=== PATIENT | female | born 1930 | race African-American/Black ===

== ENCOUNTER 2020-01-13 17:58 | Inpatient (IN) ==
[2020-01-13 18:35] LABS: Apearance,Urine CLEAR (Clear); Bacteria,Urine Occasional /HPF (Few); Basophils % 0.2 % (0.0-0.8); Bilirubin,Urine Negative (Negative); Blood, Urine Small mg/dL (Negative); Glucose,Urine (UA) Negative (Negative); Hematocrit 43.6 VOL% (35.7-47.0); Hemoglobin 13.6 GM/DL (12.0-16.0); Hyaline Casts,Urine 42 /LPF (0-3); Immature Granulocytes % 0.4 %; Immature Granulocytes Absolute 0.03 #; Ketones,Urine 5 mg/dL (Negative); Lymphocytes # 0.8 10*3/uL (1.4-4.0); Lymphocytes % 9.3 % (21.3-54.2); Mean Corpuscular HGB Conc 31.2 GM/DL (32-36); Mean Corpuscular Volume 84.7 FL (87-102); Mean Platelet Volume 12.7 FL (9.6-12.0); Monocytes % 8.2 % (1.7-12.7); Mucus,Urine Occasional /LPF (Occasional); Neutrophils % 81.9 % (38.7-73.9); Nitrite,Urine Negative (Negative); Platelet Count 161 T/CUMM (130-400); Protein,Urine 100 MG/DL; RBC,Urine 2 /HPF (0-4); Red Blood Count 5.15 MC/CUMM (3.8-5.5); Red Cell Distribution Width 14.3 % (9.3-17.3); Urine Color Amber (Yellow); Urine Specific Gravity 1.026 (1.001-1.035); Urine Urobilinogen < 2.0 EU/DL (0.2-1.0); WBC,Urine 1 /HPF (0-6); White Blood Count 8.3 T/CUMM (4-12)
[2020-01-13] MEDS ORDERED: SODIUM CHLORIDE 0.9% 1,000 ML IV STA (18:38)
[2020-01-13 18:46] LABS: Calcium 8.8 MG/DL (8.5-10.1); Osmolality,Calculated 314.9 MOS/KG (273-304)
[2020-01-13 18:54] LABS: INR 1.2; PT Patient Result 12.4 SECS (9.8-11.9)
[2020-01-13 18:58] LABS: Alanine Aminotransferase 49 U/L (13-56); Albumin 3.1 G/DL (3.4-5.0); Alkaline Phosphatase 83 U/L (45-117); Aspartate Amino Transferase 56 U/L (0-37); Blood Urea Nitrogen 44 MG/DL (7-18); Estimated Glom Filtration Rate 48 ML/MIN; Glucose 175 MG/DL (74-106); Osmolality,Calculated 313.9 MOS/KG (273-304); Total Protein 7.3 G/DL (6.4-8.3)
[2020-01-13 19:25] LABS: Barbiturates Screen,Urine Negative (Negative); Benzodiazepines Screen,Urine Negative (Negative); Cannabinoid Screen,Urine Negative (Negative); Opiate Screen,Urine Negative (Negative); Phencyclidine Screen,Urine Negative (Negative)
[2020-01-13] MEDS ORDERED: ONDANSETRON 4 MG/2 ML VIAL IV PRN (21:31)
[2020-01-13] MEDS ORDERED: hydrALAZINE 20 MG/1 ML VIAL IV STA (21:46)
[2020-01-14] MEDS: DEXTROSE 5% 1,000 ML IV SCH ×2 (00:25→11:01)
[2020-01-14 01:59] LABS: Bilirubin,Total 0.9 MG/DL (0.2-1.0); Calcium 8.7 MG/DL (8.5-10.1); Total Protein 6.8 G/DL (6.4-8.3)
[2020-01-14] MEDS: PANTOPRAZOLE 40 MG VIAL IV SCH (08:39)
[2020-01-14] MEDS ORDERED: traZODone 50 MG TABLET PO PRN (13:03)
[2020-01-14] MEDS: POTASSIUM CHLORIDE INJ 20 MEQ in DEXTROSE 5% 1,000 ML IV SCH (15:40)
[2020-01-14] MEDS: GABAPENTIN 100 MG CAPSULE PO SCH ×2 (15:42→21:06)
[2020-01-14] MEDS: POTASSIUM CHLORIDE RIDER 10 MEQ in PREMIX 1 EACH IV SCH ×4 (15:43→19:41)
[2020-01-14] MEDS: INSULIN LISPRO 100 UNIT/ML SUBCUT SCH ×2 (17:41→21:07)
[2020-01-14] MEDS: OLANZapine 5 MG TABLET PO SCH (21:04)
[2020-01-14] MEDS: ROSUVASTATIN 10 MG TABLET PO SCH (21:04)
[2020-01-14] MEDS: OXYBUTYNIN 5 MG TABLET PO SCH (21:06)
[2020-01-15 05:39] LABS: Basophils % 0.1 % (0.0-0.8); Eosinophils # 0.1 10*3/uL (0.0-0.87); Eosinophils % 0.7 % (0.00-10.9); Hematocrit 35.2 VOL% (35.7-47.0); Hemoglobin 11.3 GM/DL (12.0-16.0); Immature Granulocytes % 0.7 %; Immature Granulocytes Absolute 0.05 #; Lymphocytes # 1.5 10*3/uL (1.4-4.0); Lymphocytes % 19.9 % (21.3-54.2); Mean Corpuscular HGB Conc 32.1 GM/DL (32-36); Mean Platelet Volume 12.6 FL (9.6-12.0); Monocytes % 7.6 % (1.7-12.7); Platelet Count 139 T/CUMM (130-400); Red Blood Count 4.14 MC/CUMM (3.8-5.5); White Blood Count 7.5 T/CUMM (4-12)
[2020-01-15 06:15] LABS: Albumin 2.4 G/DL (3.4-5.0); Bilirubin,Total 0.8 MG/DL (0.2-1.0); Calcium 8.1 MG/DL (8.5-10.1); Ferritin 111.3 ng/ml (8-252); Risk Ratio 5.31; Thyroid Stimulating Hormone 1.75 uIU/ml (0.358-3.74); Total Protein 5.5 G/DL (6.4-8.3); VLDL CHOLESTEROL 21.2 MG/DL
[2020-01-15] MEDS: PANTOPRAZOLE 40 MG VIAL IV SCH (08:10)
[2020-01-15] MEDS: POTASSIUM CHLORIDE INJ 20 MEQ in DEXTROSE 5% 1,000 ML IV SCH ×2 (08:10→17:09)
[2020-01-15] MEDS: OXYBUTYNIN 5 MG TABLET PO SCH ×2 (08:11→20:52)
[2020-01-15] MEDS: FERROUS SULFATE 325 MG TABLET PO SCH (08:11)
[2020-01-15] MEDS: metFORMIN 500 MG TABLET PO SCH (08:11)
[2020-01-15] MEDS: DOCUSATE SODIUM 100 MG CAPSULE PO SCH (08:11)
[2020-01-15] MEDS: INSULIN LISPRO 100 UNIT/ML SUBCUT SCH ×4 (09:14→20:53)
[2020-01-15] MEDS: GABAPENTIN 100 MG CAPSULE PO SCH ×2 (17:09→20:51)
[2020-01-15] MEDS: ROSUVASTATIN 10 MG TABLET PO SCH (20:52)
[2020-01-15] MEDS: OLANZapine 5 MG TABLET PO SCH (20:52)
[2020-01-16] MEDS: POTASSIUM CHLORIDE INJ 20 MEQ in DEXTROSE 5% 1,000 ML IV SCH ×2 (03:47→22:39)
[2020-01-16 04:56] LABS: Basophils % 0.1 % (0.0-0.8); Eosinophils # 0.1 10*3/uL (0.0-0.87); Eosinophils % 0.6 % (0.00-10.9); Hematocrit 36.5 VOL% (35.7-47.0); Hemoglobin 11.6 GM/DL (12.0-16.0); Immature Granulocytes % 0.5 %; Immature Granulocytes Absolute 0.05 #; Lymphocytes # 1.4 10*3/uL (1.4-4.0); Lymphocytes % 14.6 % (21.3-54.2); Mean Corpuscular HGB Conc 31.8 GM/DL (32-36); Mean Corpuscular Volume 83.5 FL (87-102); Monocytes % 7.4 % (1.7-12.7); Neutrophils % 76.8 % (38.7-73.9); Platelet Count 121 T/CUMM (130-400); Red Blood Count 4.37 MC/CUMM (3.8-5.5); Red Cell Distribution Width 13.7 % (9.3-17.3); White Blood Count 9.6 T/CUMM (4-12)
[2020-01-16 05:13] LABS: Albumin 2.4 G/DL (3.4-5.0); Bilirubin,Total 1.7 MG/DL (0.2-1.0); Calcium 8.6 MG/DL (8.5-10.1); Osmolality,Calculated 278.8 MOS/KG (273-304); Total Protein 5.9 G/DL (6.4-8.3)
[2020-01-16] MEDS: PANTOPRAZOLE 40 MG VIAL IV SCH (09:14)
[2020-01-16] MEDS: FERROUS SULFATE 325 MG TABLET PO SCH (09:15)
[2020-01-16] MEDS: metFORMIN 500 MG TABLET PO SCH (09:15)
[2020-01-16] MEDS: OXYBUTYNIN 5 MG TABLET PO SCH ×2 (09:15→21:35)
[2020-01-16] MEDS: DOCUSATE SODIUM 100 MG CAPSULE PO SCH (09:15)
[2020-01-16] MEDS: INSULIN LISPRO 100 UNIT/ML SUBCUT SCH ×4 (09:15→21:36)
[2020-01-16] MEDS ORDERED: VANCOMYCIN INJ 1,250 MG in SODIUM CHLORIDE 0.9% 250 ML IV ONE (11:00)
[2020-01-16] MEDS: DEXTROSE 5% KCL 20 MEQ 20 MEQ/1,000 ML BAG IV SCH (15:57)
[2020-01-16] MEDS: GABAPENTIN 100 MG CAPSULE PO SCH ×2 (15:58→21:35)
[2020-01-16] MEDS: OLANZapine 5 MG TABLET PO SCH (21:35)
[2020-01-16] MEDS: ROSUVASTATIN 10 MG TABLET PO SCH (21:35)
[2020-01-16] MEDS: POLYMYXIN/TRIMETHOPRIM OPH SOL 10 ML BOTTLE BOTH EYES SCH (21:36)
[2020-01-17] MEDS: VANCOMYCIN INJ 1,000 MG in SODIUM CHLORIDE 0.9% 250 ML IV SCH ×2 (00:45→10:32)
[2020-01-17] MEDS: DEXTROSE 5% KCL 20 MEQ 20 MEQ/1,000 ML BAG IV SCH ×2 (02:53→19:10)
[2020-01-17 05:36] LABS: Basophils % 0.2 % (0.0-0.8); Eosinophils # 0.1 10*3/uL (0.0-0.87); Eosinophils % 0.6 % (0.00-10.9); Hematocrit 35.7 VOL% (35.7-47.0); Hemoglobin 11.2 GM/DL (12.0-16.0); Immature Granulocytes % 0.7 %; Immature Granulocytes Absolute 0.06 #; Lymphocytes # 1.1 10*3/uL (1.4-4.0); Lymphocytes % 12.4 % (21.3-54.2); Mean Corpuscular HGB Conc 31.4 GM/DL (32-36); Mean Corpuscular Volume 82.8 FL (87-102); Mean Platelet Volume 11.9 FL (9.6-12.0); Monocytes % 7.5 % (1.7-12.7); Neutrophils % 78.6 % (38.7-73.9); Platelet Count 142 T/CUMM (130-400); Red Blood Count 4.31 MC/CUMM (3.8-5.5); Red Cell Distribution Width 13.7 % (9.3-17.3); White Blood Count 8.4 T/CUMM (4-12)
[2020-01-17 06:07] LABS: Calcium 8.4 MG/DL (8.5-10.1); Osmolality,Calculated 274.1 MOS/KG (273-304)
[2020-01-17 07:09] LABS: Troponin I 0.027 NG/ML (0.00-0.045)
[2020-01-17] MEDS: PANTOPRAZOLE 40 MG VIAL IV SCH (10:13)
[2020-01-17] MEDS: INSULIN LISPRO 100 UNIT/ML SUBCUT SCH ×4 (10:13→21:50)
[2020-01-17] MEDS: FERROUS SULFATE 325 MG TABLET PO SCH (10:15)
[2020-01-17] MEDS: ASPIRIN EC 81 MG TABLET PO SCH (10:15)
[2020-01-17] MEDS: DOCUSATE SODIUM 100 MG CAPSULE PO SCH ×2 (10:15→10:33)
[2020-01-17] MEDS: OXYBUTYNIN 5 MG TABLET PO SCH ×2 (10:15→21:43)
[2020-01-17] MEDS: metFORMIN 500 MG TABLET PO SCH (10:15)
[2020-01-17] MEDS: POLYMYXIN/TRIMETHOPRIM OPH SOL 10 ML BOTTLE BOTH EYES SCH ×2 (10:32→21:50)
[2020-01-17] MEDS: GABAPENTIN 100 MG CAPSULE PO SCH ×2 (19:12→21:43)
[2020-01-17] MEDS ORDERED: TUBERCULIN SKIN TEST 0.1 ML SYRINGE INTRADERM ONE (19:17)
[2020-01-17] MEDS: OLANZapine 5 MG TABLET PO SCH (21:43)
[2020-01-17] MEDS: ROSUVASTATIN 10 MG TABLET PO SCH (21:43)
[2020-01-17] MEDS ORDERED: MAGNESIUM SULF RIDER 2 GM in PREMIX 1 EACH IV ONE (22:55)
[2020-01-18] MEDS: VANCOMYCIN INJ 1,000 MG in SODIUM CHLORIDE 0.9% 250 ML IV SCH ×2 (01:06→12:09)
[2020-01-18 05:12] LABS: Basophils % 0.1 % (0.0-0.8); Eosinophils # 0.1 10*3/uL (0.0-0.87); Eosinophils % 0.6 % (0.00-10.9); Hematocrit 33.7 VOL% (35.7-47.0); Hemoglobin 10.9 GM/DL (12.0-16.0); Immature Granulocytes % 0.8 %; Immature Granulocytes Absolute 0.06 #; Lymphocytes # 0.9 10*3/uL (1.4-4.0); Lymphocytes % 11.7 % (21.3-54.2); Mean Corpuscular HGB Conc 32.3 GM/DL (32-36); Mean Corpuscular Volume 83.2 FL (87-102); Monocytes % 9.3 % (1.7-12.7); Neutrophils % 77.5 % (38.7-73.9); Platelet Count 128 T/CUMM (130-400); Red Blood Count 4.05 MC/CUMM (3.8-5.5); Red Cell Distribution Width 13.6 % (9.3-17.3); White Blood Count 7.8 T/CUMM (4-12)
[2020-01-18 05:26] LABS: Calcium 8.1 MG/DL (8.5-10.1); Osmolality,Calculated 271.4 MOS/KG (273-304)
[2020-01-18 05:38] LABS: Hypochromasia Slight; Platelet Estimate Normal
[2020-01-18] MEDS: DEXTROSE 5% KCL 20 MEQ 20 MEQ/1,000 ML BAG IV SCH ×3 (05:59→20:37)
[2020-01-18] MEDS: PANTOPRAZOLE 40 MG VIAL IV SCH (09:37)
[2020-01-18] MEDS: FERROUS SULFATE 325 MG TABLET PO SCH (09:38)
[2020-01-18] MEDS: INSULIN LISPRO 100 UNIT/ML SUBCUT SCH ×4 (09:38→22:14)
[2020-01-18] MEDS: DOCUSATE SODIUM 100 MG CAPSULE PO SCH (09:38)
[2020-01-18] MEDS: ASPIRIN EC 81 MG TABLET PO SCH (09:38)
[2020-01-18] MEDS: OXYBUTYNIN 5 MG TABLET PO SCH ×2 (09:38→20:47)
[2020-01-18] MEDS: metFORMIN 500 MG TABLET PO SCH (09:38)
[2020-01-18] MEDS: POLYMYXIN/TRIMETHOPRIM OPH SOL 10 ML BOTTLE BOTH EYES SCH ×2 (09:39→22:13)
[2020-01-18] MEDS: GABAPENTIN 100 MG CAPSULE PO SCH ×2 (16:45→20:23)
[2020-01-18] MEDS: ROSUVASTATIN 10 MG TABLET PO SCH (20:23)
[2020-01-18] MEDS: OLANZapine 5 MG TABLET PO SCH (20:24)
[2020-01-19] MEDS: VANCOMYCIN INJ 1,000 MG in SODIUM CHLORIDE 0.9% 250 ML IV SCH ×2 (00:20→10:01)
[2020-01-19] MEDS ORDERED: cloNIDine 0.1 MG TABLET PO ONE (00:58)
[2020-01-19] MEDS: SODIUM CHLOR 0.9% KCL 20 MEQ 20 MEQ/1,000 ML BAG IV SCH ×3 (01:30→20:45)
[2020-01-19] MEDS: INSULIN LISPRO 100 UNIT/ML SUBCUT SCH ×4 (08:32→21:29)
[2020-01-19] MEDS: OXYBUTYNIN 5 MG TABLET PO SCH ×2 (08:33→20:43)
[2020-01-19] MEDS: DOCUSATE SODIUM 100 MG CAPSULE PO SCH (08:33)
[2020-01-19] MEDS: PANTOPRAZOLE 40 MG VIAL IV SCH (08:33)
[2020-01-19] MEDS: FERROUS SULFATE 325 MG TABLET PO SCH (08:33)
[2020-01-19] MEDS: ASPIRIN EC 81 MG TABLET PO SCH (08:33)
[2020-01-19] MEDS: metFORMIN 500 MG TABLET PO SCH (08:33)
[2020-01-19] MEDS: POLYMYXIN/TRIMETHOPRIM OPH SOL 10 ML BOTTLE BOTH EYES SCH ×2 (08:38→20:46)
[2020-01-19] MEDS ORDERED: METOPROLOL SUCCINATE XL 50 MG TABLET PO SCH (09:00)
[2020-01-19] MEDS: GABAPENTIN 100 MG CAPSULE PO SCH ×2 (18:14→20:42)
[2020-01-19] MEDS: ROSUVASTATIN 10 MG TABLET PO SCH (20:44)
[2020-01-19] MEDS: OLANZapine 5 MG TABLET PO SCH (20:44)
[2020-01-20] MEDS: VANCOMYCIN INJ 1,000 MG in SODIUM CHLORIDE 0.9% 250 ML IV SCH ×2 (00:20→11:38)
[2020-01-20] MEDS ORDERED: cloNIDine 0.1 MG TABLET PO PRN (03:31)
[2020-01-20 06:31] LABS: Basophils % 0.2 % (0.0-0.8); Eosinophils # 0.1 10*3/uL (0.0-0.87); Eosinophils % 0.6 % (0.00-10.9); Hematocrit 34.6 VOL% (35.7-47.0); Hemoglobin 11.1 GM/DL (12.0-16.0); Immature Granulocytes % 0.8 %; Immature Granulocytes Absolute 0.08 #; Lymphocytes # 0.6 10*3/uL (1.4-4.0); Lymphocytes % 6.1 % (21.3-54.2); Mean Corpuscular HGB Conc 32.1 GM/DL (32-36); Mean Corpuscular Volume 82.2 FL (87-102); Mean Platelet Volume 11.5 FL (9.6-12.0); Monocytes % 9.3 % (1.7-12.7); Platelet Count 155 T/CUMM (130-400); Red Blood Count 4.21 MC/CUMM (3.8-5.5); Red Cell Distribution Width 13.8 % (9.3-17.3); White Blood Count 10.3 T/CUMM (4-12)
[2020-01-20 06:55] LABS: Calcium 8.5 MG/DL (8.5-10.1); Osmolality,Calculated 281.8 MOS/KG (273-304)
[2020-01-20] MEDS: PANTOPRAZOLE 40 MG VIAL IV SCH (08:50)
[2020-01-20] MEDS: INSULIN LISPRO 100 UNIT/ML SUBCUT SCH ×3 (08:50→15:58)
[2020-01-20] MEDS: OXYBUTYNIN 5 MG TABLET PO SCH (08:51)
[2020-01-20] MEDS: FERROUS SULFATE 325 MG TABLET PO SCH (08:51)
[2020-01-20] MEDS: DOCUSATE SODIUM 100 MG CAPSULE PO SCH (08:51)
[2020-01-20] MEDS: ASPIRIN EC 81 MG TABLET PO SCH (08:51)
[2020-01-20] MEDS: metFORMIN 500 MG TABLET PO SCH (08:52)
[2020-01-20] MEDS ORDERED: METOPROLOL SUCCINATE XL 50 MG TABLET PO SCH (09:00)
[2020-01-20] MEDS: SODIUM CHLOR 0.9% KCL 20 MEQ 20 MEQ/1,000 ML BAG IV SCH (11:14)
[2020-01-20] MEDS: POLYMYXIN/TRIMETHOPRIM OPH SOL 10 ML BOTTLE BOTH EYES SCH (11:50)
[2020-01-20 15:59] VITALS: BP 136/64
[2020-01-20] MEDS: GABAPENTIN 100 MG CAPSULE PO SCH (17:11)
== END 2020-01-20 17:20 | disposition home health service (06) | DRG 641 ==
LOC: EDBD → EDUNIT# → N.ED 17:58 → N.EDINP 21:30 → N.TELEN 23:22 → N.4E 01-17 08:38
PROVIDERS: ADMIT Internal Medicine; ATTEND Internal Medicine

== ENCOUNTER 2020-01-23 18:59 | Inpatient (IN) ==
[2020-01-23] MEDS ORDERED: SODIUM CHLORIDE 0.9% 1,000 ML IV STA (19:49)
[2020-01-23 20:05] LABS: Basophils % 0.2 % (0.0-0.8); Eosinophils % 0.1 % (0.00-10.9); Hematocrit 35.4 VOL% (35.7-47.0); Hemoglobin 11.7 GM/DL (12.0-16.0); Immature Granulocytes % 0.7 %; Immature Granulocytes Absolute 0.12 #; Lymphocytes # 0.7 10*3/uL (1.4-4.0); Lymphocytes % 4.4 % (21.3-54.2); Mean Corpuscular HGB Conc 33.1 GM/DL (32-36); Mean Corpuscular Volume 80.6 FL (87-102); Monocytes % 6.5 % (1.7-12.7); Neutrophils % 88.1 % (38.7-73.9); Platelet Count 219 T/CUMM (130-400); Red Blood Count 4.39 MC/CUMM (3.8-5.5); Red Cell Distribution Width 14.1 % (9.3-17.3); White Blood Count 16.5 T/CUMM (4-12)
[2020-01-23 20:10] LABS: Albumin 2.2 G/DL (3.4-5.0); Bilirubin,Total 0.4 MG/DL (0.2-1.0); Calcium 9.1 MG/DL (8.5-10.1); Osmolality,Calculated 301.8 MOS/KG (273-304); Total Protein 6.7 G/DL (6.4-8.3)
[2020-01-23 20:13] LABS: INR 1.1; PT Patient Result 11.4 SECS (9.8-11.9)
[2020-01-23] MEDS ORDERED: INSULIN REGULAR 100 UNIT/ML IV STA (20:21)
[2020-01-23] MEDS ORDERED: DEXTROSE 50% 25 GM/50 ML VIAL IV STA (20:21)
[2020-01-23 20:26] LABS: Anisocytosis 4+; Burr Cells 4+; Lymphocytes 2 % (20-55); Platelet Estimate Adequate; Segmented Neutrophils 93 % (50-85); Total Cells Counted 100
[2020-01-23 20:30] LABS: Hypochromasia 1+
[2020-01-23] MEDS ORDERED: DEXTROSE 50% 25 GM/50 ML SYRINGE IV ONE (20:37)
[2020-01-23 20:40] LABS: Amorphous Crystals,Urine Occasional /HPF (Few); Apearance,Urine CLOUDY (Clear); Bilirubin,Urine Negative (Negative); Blood, Urine Moderate mg/dL (Negative); Glucose,Urine (UA) Negative (Negative); Hyaline Casts,Urine 3 /LPF (0-3); Ketones,Urine Negative (Negative); Mucus,Urine Occasional /LPF (Occasional); Nitrite,Urine Negative (Negative); Protein,Urine Negative; RBC,Urine 12 /HPF (0-4); Squamous Epithelial Cell,Urine Occasional /HPF (0-10); Urine Color Yellow (Yellow); Urine Specific Gravity 1.015 (1.001-1.035); Urine Urobilinogen < 2.0 EU/DL (0.2-1.0)
[2020-01-23] MEDS ORDERED: LEVOFLOXACIN INJ 500 MG in PREMIX 1 EACH IV STA (20:42)
[2020-01-23] MEDS ORDERED: ONDANSETRON 4 MG/2 ML VIAL IV PRN (20:53)
[2020-01-23] MEDS: SODIUM CHLORIDE 0.45% 1,000 ML IV SCH (21:22)
[2020-01-24] MEDS ORDERED: SODIUM POLYSTYRENE SULFATE 15 GM/60 ML BOTTLE PO ONE
[2020-01-24 05:14] LABS: Basophils % 0.2 % (0.0-0.8); Eosinophils % 0.1 % (0.00-10.9); Hemoglobin 11.1 GM/DL (12.0-16.0); Immature Granulocytes % 0.6 %; Immature Granulocytes Absolute 0.08 #; Lymphocytes # 0.8 10*3/uL (1.4-4.0); Lymphocytes % 5.8 % (21.3-54.2); Mean Corpuscular HGB Conc 32.6 GM/DL (32-36); Mean Corpuscular Volume 81.3 FL (87-102); Mean Platelet Volume 10.9 FL (9.6-12.0); Monocytes % 7.2 % (1.7-12.7); Neutrophils % 86.1 % (38.7-73.9); Platelet Count 199 T/CUMM (130-400); Red Blood Count 4.18 MC/CUMM (3.8-5.5); Red Cell Distribution Width 14.2 % (9.3-17.3); White Blood Count 13.7 T/CUMM (4-12)
[2020-01-24 05:32] LABS: Bilirubin,Total 0.5 MG/DL (0.2-1.0); Osmolality,Calculated 301.3 MOS/KG (273-304)
[2020-01-24] MEDS: SODIUM CHLORIDE 0.45% 1,000 ML IV SCH ×2 (06:38→17:05)
[2020-01-24] MEDS ORDERED: ASPIRIN EC 81 MG TABLET PO SCH (09:00)
[2020-01-24] MEDS: DOCUSATE SODIUM 100 MG CAPSULE PO SCH (11:45)
[2020-01-24] MEDS: PANTOPRAZOLE 40 MG VIAL IV SCH (12:05)
[2020-01-24] MEDS: METOPROLOL SUCCINATE XL 50 MG TABLET PO SCH (12:06)
[2020-01-24] MEDS: NYSTATIN 500,000 UNIT/5 ML UDCUP SWISH/SWAL SCH ×2 (17:04→20:12)
[2020-01-24] MEDS: cefTRIAXone 500 MG in SYRINGE 1 EACH IV SCH (17:04)
[2020-01-24] MEDS: METOPROLOL TARTRATE 5 MG/5 ML VIAL IV SCH (17:33)
[2020-01-24] MEDS: FLUCONAZOLE INJ 100 MG in IV BAG 1 EACH IV SCH (18:32)
[2020-01-24] MEDS: ENOXAPARIN 30 MG/0.3 ML SYRINGE SUBCUT SCH (20:11)
[2020-01-25] MEDS: METOPROLOL TARTRATE 5 MG/5 ML VIAL IV SCH ×4 (00:17→17:29)
[2020-01-25] MEDS: SODIUM CHLORIDE 0.45% 1,000 ML IV SCH ×2 (03:00→13:24)
[2020-01-25 05:47] LABS: Basophils % 0.3 % (0.0-0.8); Eosinophils # 0.1 10*3/uL (0.0-0.87); Eosinophils % 0.5 % (0.00-10.9); Hematocrit 30.7 VOL% (35.7-47.0); Hemoglobin 9.8 GM/DL (12.0-16.0); Immature Granulocytes % 0.6 %; Immature Granulocytes Absolute 0.07 #; Lymphocytes # 0.6 10*3/uL (1.4-4.0); Mean Corpuscular HGB Conc 31.9 GM/DL (32-36); Mean Corpuscular Volume 82.5 FL (87-102); Mean Platelet Volume 10.7 FL (9.6-12.0); Neutrophils % 88.6 % (38.7-73.9); Platelet Count 207 T/CUMM (130-400); Red Blood Count 3.72 MC/CUMM (3.8-5.5); White Blood Count 12.3 T/CUMM (4-12)
[2020-01-25 06:02] LABS: Calcium 8.2 MG/DL (8.5-10.1); Osmolality,Calculated 289.3 MOS/KG (273-304)
[2020-01-25] MEDS: PANTOPRAZOLE 40 MG VIAL IV SCH (09:20)
[2020-01-25] MEDS: NYSTATIN 500,000 UNIT/5 ML UDCUP SWISH/SWAL SCH ×4 (12:14→21:11)
[2020-01-25] MEDS: DOCUSATE SODIUM 100 MG CAPSULE PO SCH (12:14)
[2020-01-25] MEDS ORDERED: TUBERCULIN SKIN TEST 0.1 ML SYRINGE INTRADERM ONE (14:01)
[2020-01-25] MEDS ORDERED: POTASSIUM CHLORIDE 20 MEQ PACK PO ONE (14:16)
[2020-01-25] MEDS: SODIUM CHLOR 0.45% KCL 20 MEQ 20 MEQ/1,000 ML BAG IV SCH (15:12)
[2020-01-25] MEDS: cefTRIAXone 500 MG in SYRINGE 1 EACH IV SCH (16:34)
[2020-01-25] MEDS: METOPROLOL SUCCINATE XL 50 MG TABLET PO SCH (16:35)
[2020-01-25] MEDS: FLUCONAZOLE INJ 100 MG in IV BAG 1 EACH IV SCH (17:29)
[2020-01-25] MEDS: POTASSIUM CHLORIDE 20 MEQ TABLET PO PRN (18:49)
[2020-01-25] MEDS ORDERED: LEVOFLOXACIN INJ 250 MG in PREMIX 1 EACH IV SCH (21:00)
[2020-01-25] MEDS: ENOXAPARIN 30 MG/0.3 ML SYRINGE SUBCUT SCH (21:11)
[2020-01-25] MEDS: CARBIDOPA/LEVODOPA 25-100 MG TABLET PO SCH (21:11)
[2020-01-25] MEDS: POTASSIUM CHLORIDE 20 MEQ PACK PO SCH (21:11)
[2020-01-25] MEDS ORDERED: traZODone 50 MG TABLET PO PRN (22:57)
[2020-01-25] MEDS: cloNIDine 0.1 MG TABLET PO SCH (23:55)
[2020-01-26] MEDS: METOPROLOL TARTRATE 5 MG/5 ML VIAL IV SCH ×4 (00:20→17:50)
[2020-01-26] MEDS: SODIUM CHLOR 0.45% KCL 20 MEQ 20 MEQ/1,000 ML BAG IV SCH ×2 (04:05→16:37)
[2020-01-26 04:42] LABS: Basophils % 0.2 % (0.0-0.8); Eosinophils # 0.1 10*3/uL (0.0-0.87); Eosinophils % 0.6 % (0.00-10.9); Hematocrit 31.8 VOL% (35.7-47.0); Hemoglobin 10.3 GM/DL (12.0-16.0); Immature Granulocytes % 0.4 %; Immature Granulocytes Absolute 0.04 #; Lymphocytes # 0.8 10*3/uL (1.4-4.0); Lymphocytes % 7.8 % (21.3-54.2); Mean Corpuscular HGB Conc 32.4 GM/DL (32-36); Mean Corpuscular Volume 80.9 FL (87-102); Mean Platelet Volume 10.3 FL (9.6-12.0); Monocytes % 5.9 % (1.7-12.7); Neutrophils % 85.1 % (38.7-73.9); Platelet Count 221 T/CUMM (130-400); Red Blood Count 3.93 MC/CUMM (3.8-5.5); Red Cell Distribution Width 13.8 % (9.3-17.3); White Blood Count 10.4 T/CUMM (4-12)
[2020-01-26] MEDS: POTASSIUM CHLORIDE 20 MEQ TABLET PO PRN ×3 (09:23→17:53)
[2020-01-26] MEDS: CARBIDOPA/LEVODOPA 25-100 MG TABLET PO SCH ×3 (09:24→21:12)
[2020-01-26] MEDS: NYSTATIN 500,000 UNIT/5 ML UDCUP SWISH/SWAL SCH ×4 (09:24→21:11)
[2020-01-26] MEDS: METOPROLOL SUCCINATE XL 50 MG TABLET PO SCH (09:24)
[2020-01-26] MEDS: POTASSIUM CHLORIDE 20 MEQ PACK PO SCH ×2 (09:24→21:12)
[2020-01-26] MEDS: cloNIDine 0.1 MG TABLET PO SCH ×2 (09:24→21:12)
[2020-01-26] MEDS: DOCUSATE SODIUM 100 MG CAPSULE PO SCH (09:24)
[2020-01-26] MEDS: PANTOPRAZOLE 40 MG VIAL IV SCH (09:37)
[2020-01-26] MEDS: RIVASTIGMINE 1.5 MG CAPSULE PO SCH ×2 (09:37→16:09)
[2020-01-26] MEDS: cefTRIAXone 500 MG in SYRINGE 1 EACH IV SCH (16:09)
[2020-01-26] MEDS: FLUCONAZOLE INJ 100 MG in IV BAG 1 EACH IV SCH (17:50)
[2020-01-26] MEDS: ENOXAPARIN 30 MG/0.3 ML SYRINGE SUBCUT SCH (21:11)
[2020-01-27] MEDS: METOPROLOL TARTRATE 5 MG/5 ML VIAL IV SCH ×4 (00:50→18:18)
[2020-01-27] MEDS: SODIUM CHLOR 0.45% KCL 20 MEQ 20 MEQ/1,000 ML BAG IV SCH ×2 (06:14→20:56)
[2020-01-27 06:26] LABS: Basophils % 0.2 % (0.0-0.8); Eosinophils # 0.1 10*3/uL (0.0-0.87); Eosinophils % 0.6 % (0.00-10.9); Hematocrit 33.8 VOL% (35.7-47.0); Hemoglobin 10.8 GM/DL (12.0-16.0); Immature Granulocytes % 0.5 %; Immature Granulocytes Absolute 0.05 #; Lymphocytes % 9.6 % (21.3-54.2); Mean Corpuscular Volume 83.7 FL (87-102); Mean Platelet Volume 10.1 FL (9.6-12.0); Monocytes % 5.3 % (1.7-12.7); Neutrophils % 83.8 % (38.7-73.9); Platelet Count 261 T/CUMM (130-400); Red Blood Count 4.04 MC/CUMM (3.8-5.5); Red Cell Distribution Width 13.9 % (9.3-17.3); White Blood Count 10.5 T/CUMM (4-12)
[2020-01-27 06:42] LABS: Calcium 8.1 MG/DL (8.5-10.1); Osmolality,Calculated 282.3 MOS/KG (273-304)
[2020-01-27] MEDS ORDERED: cloNIDine 0.1 MG TABLET PO SCH (09:00)
[2020-01-27] MEDS: NYSTATIN 500,000 UNIT/5 ML UDCUP SWISH/SWAL SCH ×4 (09:28→20:52)
[2020-01-27] MEDS: PANTOPRAZOLE 40 MG VIAL IV SCH (09:28)
[2020-01-27] MEDS: POTASSIUM CHLORIDE 20 MEQ PACK PO SCH ×2 (09:29→20:53)
[2020-01-27] MEDS: CARBIDOPA/LEVODOPA 25-100 MG TABLET PO SCH ×3 (09:29→20:52)
[2020-01-27] MEDS: RIVASTIGMINE 1.5 MG CAPSULE PO SCH ×2 (09:29→17:20)
[2020-01-27] MEDS: DOCUSATE SODIUM 100 MG CAPSULE PO SCH (09:30)
[2020-01-27] MEDS: METOPROLOL SUCCINATE XL 50 MG TABLET PO SCH (09:30)
[2020-01-27] MEDS: hydrALAZINE 25 MG TABLET PO SCH ×3 (09:47→20:52)
[2020-01-27] MEDS: hydrALAZINE 20 MG/1 ML VIAL IV PRN (17:19)
[2020-01-27] MEDS: cefTRIAXone 500 MG in SYRINGE 1 EACH IV SCH (17:20)
[2020-01-27] MEDS: FLUCONAZOLE INJ 100 MG in IV BAG 1 EACH IV SCH (18:19)
[2020-01-27] MEDS: ENOXAPARIN 30 MG/0.3 ML SYRINGE SUBCUT SCH (20:52)
[2020-01-28] MEDS: METOPROLOL TARTRATE 5 MG/5 ML VIAL IV SCH ×5 (00:10→23:53)
[2020-01-28 06:49] LABS: Calcium 7.7 MG/DL (8.5-10.1); Osmolality,Calculated 274.7 MOS/KG (273-304)
[2020-01-28] MEDS: PANTOPRAZOLE 40 MG VIAL IV SCH (09:05)
[2020-01-28] MEDS: hydrALAZINE 20 MG/1 ML VIAL IV PRN (09:05)
[2020-01-28] MEDS: RIVASTIGMINE 1.5 MG CAPSULE PO SCH ×2 (09:06→17:26)
[2020-01-28] MEDS: POTASSIUM CHLORIDE 20 MEQ PACK PO SCH ×2 (09:06→20:36)
[2020-01-28] MEDS: METOPROLOL SUCCINATE XL 50 MG TABLET PO SCH (09:06)
[2020-01-28] MEDS: NYSTATIN 500,000 UNIT/5 ML UDCUP SWISH/SWAL SCH ×4 (09:06→20:36)
[2020-01-28] MEDS: hydrALAZINE 25 MG TABLET PO SCH ×3 (09:07→20:36)
[2020-01-28] MEDS: CARBIDOPA/LEVODOPA 25-100 MG TABLET PO SCH ×3 (09:07→20:36)
[2020-01-28] MEDS: DOCUSATE SODIUM 100 MG CAPSULE PO SCH (09:07)
[2020-01-28] MEDS: SODIUM CHLOR 0.45% KCL 20 MEQ 20 MEQ/1,000 ML BAG IV SCH ×2 (10:41→23:57)
[2020-01-28] MEDS ORDERED: ACETAMINOPHEN 500 MG TABLET PO PRN (12:13)
[2020-01-28] MEDS: FLUCONAZOLE INJ 100 MG in IV BAG 1 EACH IV SCH (17:25)
[2020-01-28] MEDS: cefTRIAXone 500 MG in SYRINGE 1 EACH IV SCH (17:26)
[2020-01-28] MEDS: ENOXAPARIN 30 MG/0.3 ML SYRINGE SUBCUT SCH (20:35)
[2020-01-29] MEDS: METOPROLOL TARTRATE 5 MG/5 ML VIAL IV SCH ×4 (05:49→23:56)
[2020-01-29 05:58] LABS: Calcium 7.8 MG/DL (8.5-10.1); Osmolality,Calculated 278.5 MOS/KG (273-304)
[2020-01-29] MEDS: hydrALAZINE 20 MG/1 ML VIAL IV PRN (09:07)
[2020-01-29] MEDS: RIVASTIGMINE 1.5 MG CAPSULE PO SCH ×2 (09:57→16:41)
[2020-01-29] MEDS: DOCUSATE SODIUM 100 MG CAPSULE PO SCH (09:57)
[2020-01-29] MEDS: METOPROLOL SUCCINATE XL 50 MG TABLET PO SCH (09:57)
[2020-01-29] MEDS: CARBIDOPA/LEVODOPA 25-100 MG TABLET PO SCH ×3 (09:57→20:23)
[2020-01-29] MEDS: POTASSIUM CHLORIDE 20 MEQ PACK PO SCH ×2 (09:57→20:23)
[2020-01-29] MEDS: hydrALAZINE 25 MG TABLET PO SCH ×3 (09:57→20:23)
[2020-01-29] MEDS: NYSTATIN 500,000 UNIT/5 ML UDCUP SWISH/SWAL SCH ×4 (10:09→20:23)
[2020-01-29] MEDS: PANTOPRAZOLE 40 MG VIAL IV SCH (10:34)
[2020-01-29] MEDS: SODIUM CHLOR 0.45% KCL 20 MEQ 20 MEQ/1,000 ML BAG IV SCH (13:28)
[2020-01-29] MEDS: cefTRIAXone 500 MG in SYRINGE 1 EACH IV SCH (16:40)
[2020-01-29] MEDS: FLUCONAZOLE INJ 100 MG in IV BAG 1 EACH IV SCH (20:22)
[2020-01-29] MEDS: ENOXAPARIN 30 MG/0.3 ML SYRINGE SUBCUT SCH (20:23)
[2020-01-30] MEDS: METOPROLOL TARTRATE 5 MG/5 ML VIAL IV SCH ×2 (05:49→12:25)
[2020-01-30] MEDS: SODIUM CHLOR 0.45% KCL 20 MEQ 20 MEQ/1,000 ML BAG IV SCH (06:28)
[2020-01-30] MEDS: NYSTATIN 500,000 UNIT/5 ML UDCUP SWISH/SWAL SCH (09:22)
[2020-01-30] MEDS: CARBIDOPA/LEVODOPA 25-100 MG TABLET PO SCH (09:22)
[2020-01-30] MEDS: hydrALAZINE 25 MG TABLET PO SCH (09:23)
[2020-01-30] MEDS: POTASSIUM CHLORIDE 20 MEQ PACK PO SCH (09:23)
[2020-01-30] MEDS: DOCUSATE SODIUM 100 MG CAPSULE PO SCH (09:23)
[2020-01-30] MEDS: METOPROLOL SUCCINATE XL 50 MG TABLET PO SCH (09:23)
[2020-01-30] MEDS: RIVASTIGMINE 1.5 MG CAPSULE PO SCH (09:24)
[2020-01-30] MEDS: PANTOPRAZOLE 40 MG VIAL IV SCH (09:33)
[2020-01-30 10:56] VITALS: BP 159/71
== END 2020-01-30 12:27 | DRG 682 ==
LOC: EDBD → EDUNIT# → N.ED 18:59 → N.EDINP 20:52 → N.TELEN 22:35
PROVIDERS: ADMIT Internal Medicine; ATTEND Internal Medicine

== ENCOUNTER 2020-02-08 12:22 | Inpatient (IN) ==
[2020-02-08] MEDS ORDERED: SODIUM CHLORIDE 0.9% 1,000 ML IV STA (13:24)
[2020-02-08 13:41] LABS: Basophils % 0.4 % (0.0-0.8); Eosinophils # 0.1 10*3/uL (0.0-0.87); Eosinophils % 1.3 % (0.00-10.9); Hematocrit 31.8 VOL% (35.7-47.0); Hemoglobin 9.8 GM/DL (12.0-16.0); Immature Granulocytes % 0.7 %; Immature Granulocytes Absolute 0.05 #; Lymphocytes # 0.9 10*3/uL (1.4-4.0); Lymphocytes % 12.7 % (21.3-54.2); Mean Corpuscular HGB Conc 30.8 GM/DL (32-36); Mean Corpuscular Volume 85.7 FL (87-102); Mean Platelet Volume 11.1 FL (9.6-12.0); Monocytes % 6.3 % (1.7-12.7); Neutrophils % 78.6 % (38.7-73.9); Platelet Count 223 T/CUMM (130-400); Red Blood Count 3.71 MC/CUMM (3.8-5.5); Red Cell Distribution Width 13.9 % (9.3-17.3); White Blood Count 6.8 T/CUMM (4-12)
[2020-02-08 14:01] LABS: Apearance,Urine Clear (Clear); Glucose,Urine (UA) Negative (Negative); Ketones,Urine 100 mg/dL (Negative); Nitrite,Urine Negative (Negative); Protein,Urine 30 MG/DL; Urine Color Yellow (Yellow); Urine Specific Gravity 1.015 (1.001-1.035)
[2020-02-08 14:02] LABS: Bilirubin,Urine Negative (Negative); Blood, Urine Negative (Negative); Urine Urobilinogen 0.2 EU/DL (0.2-1.0)
[2020-02-08 14:07] LABS: Albumin 2.2 G/DL (3.4-5.0); Bilirubin,Total 0.6 MG/DL (0.2-1.0); Calcium 8.6 MG/DL (8.5-10.1); Osmolality,Calculated 284.1 MOS/KG (273-304); Total Protein 6.2 G/DL (6.4-8.3)
[2020-02-08] MEDS ORDERED: cefTRIAXone 1,000 MG in SODIUM CHLORIDE 0.9% 100 ML IV STA (14:09)
[2020-02-08] MEDS ORDERED: ONDANSETRON 4 MG/2 ML VIAL IV PRN (14:21)
[2020-02-08] MEDS ORDERED: ACETAMINOPHEN 325 MG TABLET PO PRN (14:21)
[2020-02-08] MEDS ORDERED: AZITHROMYCIN INJ 500 MG in SODIUM CHLORIDE 0.9% 250 ML IV STA (14:21)
[2020-02-08] MEDS: SODIUM CHLORIDE 0.9% 1,000 ML IV SCH (17:47)
[2020-02-08] MEDS ORDERED: POTASSIUM CHLORIDE 20 MEQ/15 ML UDCUP PO ONE (19:38)
[2020-02-08] MEDS: hydrALAZINE 25 MG TABLET PO SCH ×2 (19:47→21:15)
[2020-02-08] MEDS ORDERED: traZODone 50 MG TABLET PO PRN (20:25)
[2020-02-08] MEDS: POLYMYXIN/TRIMETHOPRIM OPH SOL 10 ML BOTTLE LEFT EYE SCH ×2 (21:14)
[2020-02-08] MEDS: RIVASTIGMINE 1.5 MG CAPSULE PO SCH (21:14)
[2020-02-08] MEDS: DOCUSATE SODIUM 100 MG CAPSULE PO SCH (21:14)
[2020-02-08] MEDS: CARBIDOPA/LEVODOPA 25-100 MG TABLET PO SCH (21:14)
[2020-02-08] MEDS: POTASSIUM CHLORIDE 20 MEQ PACK PO SCH (21:15)
[2020-02-08] MEDS: MEROPENEM 500 MG in SODIUM CHLORIDE 0.9% 100 ML IV SCH (21:15)
[2020-02-09] MEDS: ALBUTEROL/IPRATROPIUM 3 ML NEB RESP TX SCH ×4 (00:57→19:44)
[2020-02-09] MEDS: SODIUM CHLORIDE 0.9% 1,000 ML IV SCH ×3 (02:24→22:04)
[2020-02-09] MEDS: MEROPENEM 500 MG in SODIUM CHLORIDE 0.9% 100 ML IV SCH ×4 (03:27→22:03)
[2020-02-09 06:26] LABS: Calcium 8.3 MG/DL (8.5-10.1)
[2020-02-09] MEDS ORDERED: POTASSIUM CHLORIDE 20 MEQ TABLET PO ONE (09:38)
[2020-02-09] MEDS: PANTOPRAZOLE 40 MG TABLET PO SCH (10:24)
[2020-02-09] MEDS: DOCUSATE SODIUM 100 MG CAPSULE PO SCH ×3 (10:24→22:03)
[2020-02-09] MEDS: METOPROLOL SUCCINATE XL 50 MG TABLET PO SCH (10:24)
[2020-02-09] MEDS: hydrALAZINE 25 MG TABLET PO SCH ×3 (10:24→22:04)
[2020-02-09] MEDS: CARBIDOPA/LEVODOPA 25-100 MG TABLET PO SCH ×3 (10:24→22:04)
[2020-02-09] MEDS: ASPIRIN EC 81 MG TABLET PO SCH (10:24)
[2020-02-09] MEDS: RIVASTIGMINE 1.5 MG CAPSULE PO SCH ×2 (10:25→17:12)
[2020-02-09] MEDS: FERROUS SULFATE 325 MG TABLET PO SCH (10:25)
[2020-02-09] MEDS: POTASSIUM CHLORIDE 20 MEQ PACK PO SCH ×2 (10:33→22:04)
[2020-02-09] MEDS: POLYMYXIN/TRIMETHOPRIM OPH SOL 10 ML BOTTLE LEFT EYE SCH ×2 (10:42→22:04)
[2020-02-10] MEDS: ALBUTEROL/IPRATROPIUM 3 ML NEB RESP TX SCH ×4 (00:10→19:16)
[2020-02-10] MEDS: MEROPENEM 500 MG in SODIUM CHLORIDE 0.9% 100 ML IV SCH ×4 (04:11→21:32)
[2020-02-10] MEDS: SODIUM CHLORIDE 0.9% 1,000 ML IV SCH ×3 (04:12→16:34)
[2020-02-10 06:26] LABS: Osmolality,Calculated 288.6 MOS/KG (273-304)
[2020-02-10 06:37] LABS: INR 1.2; PT Patient Result 12.5 SECS (9.8-11.9)
[2020-02-10] MEDS: LACTATED RINGERS 1,000 ML IV SCH (12:23)
[2020-02-10] MEDS ORDERED: LIDOCAINE 100 MG/5 ML SYRINGE ONE (12:39)
[2020-02-10] MEDS ORDERED: ETOMIDATE 20 MG/10 ML VIAL IV ONE (12:39)
[2020-02-10] MEDS ORDERED: propofoL 200 MG/20 ML VIAL IV ONE (12:39)
[2020-02-10] MEDS: POLYMYXIN/TRIMETHOPRIM OPH SOL 10 ML BOTTLE LEFT EYE SCH ×2 (16:31→21:33)
[2020-02-10] MEDS: METOPROLOL SUCCINATE XL 50 MG TABLET PO SCH (16:32)
[2020-02-10] MEDS: POTASSIUM CHLORIDE 20 MEQ PACK PO SCH ×2 (16:32→21:34)
[2020-02-10] MEDS: ASPIRIN EC 81 MG TABLET PO SCH (16:32)
[2020-02-10] MEDS: hydrALAZINE 25 MG TABLET PO SCH ×3 (16:32→21:31)
[2020-02-10] MEDS: CARBIDOPA/LEVODOPA 25-100 MG TABLET PO SCH ×3 (16:33→21:33)
[2020-02-10] MEDS: DOCUSATE SODIUM 100 MG CAPSULE PO SCH ×3 (16:33→21:33)
[2020-02-10] MEDS: RIVASTIGMINE 1.5 MG CAPSULE PO SCH ×2 (16:33)
[2020-02-10] MEDS: PANTOPRAZOLE 40 MG TABLET PO SCH (16:34)
[2020-02-10] MEDS: FERROUS SULFATE 325 MG TABLET PO SCH (16:34)
[2020-02-11] MEDS: ALBUTEROL/IPRATROPIUM 3 ML NEB RESP TX SCH ×4 (00:04→19:39)
[2020-02-11] MEDS: MEROPENEM 500 MG in SODIUM CHLORIDE 0.9% 100 ML IV SCH ×4 (04:26→21:59)
[2020-02-11] MEDS: hydrALAZINE 20 MG/1 ML VIAL IV PRN (06:15)
[2020-02-11] MEDS: traMADol 50 MG TABLET PO PRN (06:15)
[2020-02-11 07:02] LABS: Calcium 8.1 MG/DL (8.5-10.1)
[2020-02-11] MEDS: LACTATED RINGERS 1,000 ML IV SCH (07:51)
[2020-02-11] MEDS: POLYMYXIN/TRIMETHOPRIM OPH SOL 10 ML BOTTLE LEFT EYE SCH ×2 (10:19→22:05)
[2020-02-11] MEDS: FERROUS SULFATE 325 MG TABLET PO SCH (10:19)
[2020-02-11] MEDS: CARBIDOPA/LEVODOPA 25-100 MG TABLET PO SCH ×3 (10:19→22:04)
[2020-02-11] MEDS: hydrALAZINE 25 MG TABLET PO SCH ×3 (10:19→21:59)
[2020-02-11] MEDS: DOCUSATE SODIUM 100 MG CAPSULE PO SCH ×3 (10:20→22:05)
[2020-02-11] MEDS: METOPROLOL SUCCINATE XL 50 MG TABLET PO SCH (10:20)
[2020-02-11] MEDS: POTASSIUM CHLORIDE 20 MEQ TABLET PO PRN ×2 (10:20→16:01)
[2020-02-11] MEDS: PANTOPRAZOLE 40 MG TABLET PO SCH (10:20)
[2020-02-11] MEDS: POTASSIUM CHLORIDE 20 MEQ PACK PO SCH ×2 (10:20→22:04)
[2020-02-11] MEDS: ASPIRIN EC 81 MG TABLET PO SCH (10:20)
[2020-02-11] MEDS: RIVASTIGMINE 1.5 MG CAPSULE PO SCH ×2 (10:20→16:04)
[2020-02-11] MEDS ORDERED: MAGNESIUM SULF RIDER 2 GM in PREMIX 1 EACH IV PRN (13:26)
[2020-02-11] MEDS ORDERED: MAGNESIUM SULF RIDER 4 GM in PREMIX 1 EACH IV PRN (13:26)
[2020-02-11] MEDS ORDERED: POTASSIUM PHOSPHATE 10 MMOL in SODIUM CHLORIDE 0.9% 100 ML IV ONE (15:00)
[2020-02-12] MEDS: ALBUTEROL/IPRATROPIUM 3 ML NEB RESP TX SCH ×4 (01:43→19:05)
[2020-02-12] MEDS: MEROPENEM 500 MG in SODIUM CHLORIDE 0.9% 100 ML IV SCH ×4 (04:11→21:00)
[2020-02-12] MEDS: LACTATED RINGERS 1,000 ML IV SCH (09:22)
[2020-02-12] MEDS: SODIUM CHLORIDE 0.9% 1,000 ML IV SCH ×3 (09:23→23:04)
[2020-02-12] MEDS: POTASSIUM CHLORIDE 20 MEQ PACK PO SCH ×2 (09:26→21:03)
[2020-02-12] MEDS: ASPIRIN EC 81 MG TABLET PO SCH (09:26)
[2020-02-12] MEDS: POLYMYXIN/TRIMETHOPRIM OPH SOL 10 ML BOTTLE LEFT EYE SCH ×2 (09:26→21:02)
[2020-02-12] MEDS: METOPROLOL SUCCINATE XL 50 MG TABLET PO SCH (09:27)
[2020-02-12] MEDS: DOCUSATE SODIUM 100 MG CAPSULE PO SCH ×3 (09:27→21:01)
[2020-02-12] MEDS: FERROUS SULFATE 325 MG TABLET PO SCH (09:27)
[2020-02-12] MEDS: PANTOPRAZOLE 40 MG TABLET PO SCH (09:27)
[2020-02-12] MEDS: hydrALAZINE 25 MG TABLET PO SCH ×3 (09:27→21:01)
[2020-02-12] MEDS: RIVASTIGMINE 1.5 MG CAPSULE PO SCH ×2 (09:27→16:01)
[2020-02-12] MEDS: CARBIDOPA/LEVODOPA 25-100 MG TABLET PO SCH ×3 (09:27→21:01)
[2020-02-12] MEDS: traMADol 50 MG TABLET PO PRN (12:17)
[2020-02-12] MEDS: hydrALAZINE 20 MG/1 ML VIAL IV PRN (12:18)
[2020-02-13] MEDS: ALBUTEROL/IPRATROPIUM 3 ML NEB RESP TX SCH ×3 (01:35→14:25)
[2020-02-13] MEDS: MEROPENEM 500 MG in SODIUM CHLORIDE 0.9% 100 ML IV SCH ×2 (02:54→08:53)
[2020-02-13 06:01] LABS: Calcium 8.3 MG/DL (8.5-10.1); Osmolality,Calculated 277.7 MOS/KG (273-304)
[2020-02-13] MEDS: SODIUM CHLORIDE 0.9% 1,000 ML IV SCH (07:38)
[2020-02-13] MEDS: METOPROLOL SUCCINATE XL 50 MG TABLET PO SCH (08:52)
[2020-02-13] MEDS: ASPIRIN EC 81 MG TABLET PO SCH (08:52)
[2020-02-13] MEDS: DOCUSATE SODIUM 100 MG CAPSULE PO SCH ×2 (08:52→10:02)
[2020-02-13] MEDS: CARBIDOPA/LEVODOPA 25-100 MG TABLET PO SCH (08:52)
[2020-02-13] MEDS: POTASSIUM CHLORIDE 20 MEQ PACK PO SCH (08:52)
[2020-02-13] MEDS: FERROUS SULFATE 325 MG TABLET PO SCH (08:52)
[2020-02-13] MEDS: PANTOPRAZOLE 40 MG TABLET PO SCH (08:52)
[2020-02-13] MEDS: hydrALAZINE 25 MG TABLET PO SCH (08:52)
[2020-02-13] MEDS: LACTATED RINGERS 1,000 ML IV SCH (08:56)
[2020-02-13] MEDS: POLYMYXIN/TRIMETHOPRIM OPH SOL 10 ML BOTTLE LEFT EYE SCH (09:25)
[2020-02-13] MEDS: RIVASTIGMINE 1.5 MG CAPSULE PO SCH (09:25)
[2020-02-13] MEDS ORDERED: TUBERCULIN SKIN TEST 0.1 ML SYRINGE INTRADERM ONE (15:12)
[2020-02-13 16:50] VITALS: BP 181/82
== END 2020-02-13 16:54 | DRG 194 ==
LOC: EDUNIT# → N.ED 12:22 → N.EDINP 14:21 → N.TELEN 15:20 → N.4E 02-13 10:51
PROVIDERS: ADMIT Internal Medicine; ATTEND Internal Medicine
PROC: EGDWPEG (ICD-10-PCS; 2020-02-10 12:50)

== ENCOUNTER 2020-12-02 12:17 | Inpatient (IN) ==
[2020-12-02] MEDS ORDERED: VANCOMYCIN INJ 750 MG in SODIUM CHLORIDE 0.9% 250 ML IV STA (13:00)
[2020-12-02 13:12] LABS: Basophils % 0.2 % (0.0-0.8); Eosinophils % 0.2 % (0.00-10.9); Hematocrit 30.2 VOL% (35.7-47.0); Immature Granulocytes % 0.7 %; Immature Granulocytes Absolute 0.12 #; Lymphocytes # 0.4 10*3/uL (1.4-4.0); Lymphocytes % 2.5 % (21.3-54.2); Mean Corpuscular HGB Conc 29.8 GM/DL (32-36); Mean Corpuscular Volume 74.8 FL (87-102); Mean Platelet Volume 11.8 FL (9.6-12.0); Monocytes % 5.1 % (1.7-12.7); Neutrophils % 91.3 % (38.7-73.9); Platelet Count 261 T/CUMM (130-400); Red Blood Count 4.04 MC/CUMM (3.8-5.5); Red Cell Distribution Width 17.2 % (9.3-17.3); White Blood Count 17.8 T/CUMM (4-12)
[2020-12-02 13:18] LABS: Alanine Aminotransferase 69 U/L (13-56); Albumin 1.9 G/DL (3.4-5.0); Alkaline Phosphatase 186 U/L (45-117); Aspartate Amino Transferase 46 U/L (0-37); Bilirubin,Total < 0.39 MG/DL (0.2-1.0); Blood Urea Nitrogen 60 MG/DL (7-18); Calcium 9.4 MG/DL (8.5-10.1); Carbon Dioxide 32 MMOL/L (21-32); Estimated Glom Filtration Rate 60 ML/MIN; Glucose 209 MG/DL (74-106); Potassium 4.9 MMOL/L (3.5-5.1); Sodium 136 MMOL/L (136-145); Total Protein 7.4 G/DL (6.4-8.2)
[2020-12-02] MEDS ORDERED: SODIUM CHLORIDE 0.9% 1,000 ML IV STA (13:22)
[2020-12-02 13:34] LABS: Band Neutrophils 1 % (0-10); Lymphocytes 4 % (20-55); Segmented Neutrophils 94 % (50-85); Total Cells Counted 100; Toxic Granulation 2+
[2020-12-02 13:35] LABS: Hypochromasia Slight; Microcytosis 1+; Platelet Estimate Normal; Polychromasia Slight
[2020-12-02] MEDS ORDERED: VANCOMYCIN 1,000 MG VIAL ONE (13:37)
[2020-12-02] MEDS ORDERED: VANCOMYCIN INJ 1,000 MG in SODIUM CHLORIDE 0.9% 250 ML IV STA (13:48)
[2020-12-02 13:51] LABS: Bacteria,Urine Occasional /HPF (Few); Bilirubin,Urine Negative (Negative); Blood, Urine Negative (Negative); Calcium Oxalate Crystals,Urine Many /HPF (Few); Glucose,Urine (UA) >=500 mg/dL (Negative); Hyaline Casts,Urine 3 /LPF (0-3); Ketones,Urine Negative (Negative); Mucus,Urine Occasional /LPF (Occasional); Nitrite,Urine Negative (Negative); Protein,Urine 100 MG/DL; RBC,Urine 1 /HPF (0-4); Urine Appearance CLOUDY (Clear); Urine Color Amber (Yellow); Urine Specific Gravity 1.018 (1.001-1.035); Urine Urobilinogen < 2.0 EU/DL (0.2-1.0)
[2020-12-02] MEDS ORDERED: ACETAMINOPHEN 500 MG TABLET PEG STA (14:20)
[2020-12-02] MEDS ORDERED: PIPERACILLIN/TAZOBACTAM 3,375 MG in SODIUM CHLORIDE 0.9% 100 ML IV STA (14:34)
[2020-12-02] MEDS ORDERED: ONDANSETRON 4 MG/2 ML VIAL IV PRN (14:40)
[2020-12-02] MEDS: ENOXAPARIN 30 MG/0.3 ML SYRINGE SUBCUT SCH (15:20)
[2020-12-02] MEDS: SODIUM CHLORIDE 0.9% 1,000 ML IV SCH (16:25)
[2020-12-02] MEDS ORDERED: METOPROLOL SUCCINATE XL 50 MG TABLET PO ONE (18:10)
[2020-12-02] MEDS: PIPERACILLIN/TAZOBACTAM 3,375 MG in SODIUM CHLORIDE 0.9% 100 ML IV SCH (20:54)
[2020-12-02] MEDS: DOCUSATE SODIUM 100 MG CAPSULE PO SCH (20:54)
[2020-12-03] MEDS: ACETAMINOPHEN 325 MG TABLET PO PRN (01:20)
[2020-12-03] MEDS: SODIUM CHLORIDE 0.9% 1,000 ML IV SCH ×3 (04:27→15:23)
[2020-12-03] MEDS: PIPERACILLIN/TAZOBACTAM 3,375 MG in SODIUM CHLORIDE 0.9% 100 ML IV SCH ×3 (04:27→21:49)
[2020-12-03 07:13] LABS: Calcium 8.7 MG/DL (8.5-10.1); Osmolality,Calculated 292.5 MOS/KG (273-304); Potassium 3.9 MMOL/L (3.5-5.1)
[2020-12-03] MEDS ORDERED: VANCOMYCIN INJ 750 MG in SODIUM CHLORIDE 0.9% 250 ML IV SCH (08:00)
[2020-12-03 08:31] LABS: Basophils % 0.1 % (0.0-0.8); Eosinophils % 0.2 % (0.00-10.9); Hematocrit 25.1 VOL% (35.7-47.0); Immature Granulocytes % 1.2 %; Immature Granulocytes Absolute 0.15 #; Lymphocytes # 0.6 10*3/uL (1.4-4.0); Lymphocytes % 4.7 % (21.3-54.2); Mean Corpuscular HGB Conc 31.9 GM/DL (32-36); Mean Platelet Volume 10.9 FL (9.6-12.0); Monocytes % 6.3 % (1.7-12.7); Neutrophils % 87.5 % (38.7-73.9); Platelet Count 198 T/CUMM (130-400); Red Blood Count 3.44 MC/CUMM (3.8-5.5); Red Cell Distribution Width 17.3 % (9.3-17.3); White Blood Count 12.9 T/CUMM (4-12)
[2020-12-03 08:55] LABS: Band Neutrophils 1 % (0-10); Hypochromasia 2+; Lymphocytes 4 % (20-55); Microcytosis 1+; Ovalocytes Slight; Platelet Estimate Adequate; Segmented Neutrophils 91 % (50-85); Total Cells Counted 100
[2020-12-03] MEDS ORDERED: PANTOPRAZOLE 40 MG TABLET PO SCH (09:00)
[2020-12-03] MEDS: DOCUSATE SODIUM 100 MG CAPSULE PO SCH (09:36)
[2020-12-03] MEDS: METOPROLOL SUCCINATE XL 50 MG TABLET PO SCH (09:36)
[2020-12-03] MEDS: SODIUM HYPOCHLORITE 0.25% IRRIG 473 ML BOTTLE TOP SCH (13:20)
[2020-12-03] MEDS: ENOXAPARIN 30 MG/0.3 ML SYRINGE SUBCUT SCH (15:23)
[2020-12-03] MEDS ORDERED: cloNIDine 0.1 MG TABLET PO ONE (16:41)
[2020-12-03] MEDS: DOCUSATE SODIUM 100 MG/10 ML UDCUP PEG SCH (21:49)
[2020-12-04] MEDS: SODIUM CHLORIDE 0.9% 1,000 ML IV SCH ×2 (02:45→10:11)
[2020-12-04] MEDS: cloNIDine 0.1 MG TABLET PO SCH ×5 (03:55→21:01)
[2020-12-04 05:39] LABS: Basophils % 0.2 % (0.0-0.8); Hematocrit 28.2 VOL% (35.7-47.0); Hemoglobin 8.8 GM/DL (12.0-16.0); Immature Granulocytes % 1.2 %; Lymphocytes # 0.5 10*3/uL (1.4-4.0); Lymphocytes % 2.8 % (21.3-54.2); Mean Corpuscular HGB Conc 31.2 GM/DL (32-36); Mean Corpuscular Volume 72.1 FL (87-102); Mean Platelet Volume 10.3 FL (9.6-12.0); Monocytes % 5.4 % (1.7-12.7); Neutrophils % 90.4 % (38.7-73.9); Platelet Count 272 T/CUMM (130-400); Red Blood Count 3.91 MC/CUMM (3.8-5.5); Red Cell Distribution Width 17.6 % (9.3-17.3)
[2020-12-04] MEDS: PIPERACILLIN/TAZOBACTAM 3,375 MG in SODIUM CHLORIDE 0.9% 100 ML IV SCH ×3 (05:39→21:02)
[2020-12-04] MEDS: OMEPRAZOLE ODT 20 MG TABLET PEG SCH (05:40)
[2020-12-04 06:00] LABS: Calcium 9.1 MG/DL (8.5-10.1); Osmolality,Calculated 310.7 MOS/KG (273-304); Potassium 3.6 MMOL/L (3.5-5.1)
[2020-12-04 06:03] LABS: Hypochromasia 2+; Lymphocytes 4 % (20-55); Microcytosis 1+; Segmented Neutrophils 94 % (50-85); Total Cells Counted 100
[2020-12-04 06:04] LABS: Ovalocytes Slight; Platelet Estimate Normal; Target Cells Slight
[2020-12-04] MEDS: METOPROLOL SUCCINATE XL 50 MG TABLET PO SCH (08:09)
[2020-12-04] MEDS: DOCUSATE SODIUM 100 MG/10 ML UDCUP PEG SCH ×2 (08:09→21:01)
[2020-12-04] MEDS: SODIUM HYPOCHLORITE 0.25% IRRIG 473 ML BOTTLE TOP SCH (10:11)
[2020-12-04] MEDS ORDERED: GLUCAGON 1 MG VIAL IM PRN (11:44)
[2020-12-04] MEDS ORDERED: DEXTROSE 50% 25 GM/50 ML VIAL IV PRN (11:44)
[2020-12-04] MEDS: INSULIN REGULAR 100 UNIT/ML SUBCUT SCH ×2 (12:22→17:20)
[2020-12-04] MEDS ORDERED: METOPROLOL TARTRATE 50 MG TABLET PO ONE (13:00)
[2020-12-04] MEDS: hydrALAZINE 20 MG/1 ML VIAL IV PRN (13:11)
[2020-12-04] MEDS: ACETAMINOPHEN 325 MG TABLET PO PRN (13:11)
[2020-12-04] MEDS: SODIUM CHLORIDE 0.45% 1,000 ML IV SCH (15:33)
[2020-12-04] MEDS: ENOXAPARIN 30 MG/0.3 ML SYRINGE SUBCUT SCH (15:33)
[2020-12-04] MEDS: METOPROLOL TARTRATE 100 MG TABLET PO SCH (21:01)
[2020-12-04] MEDS: methylPREDNISolone SOD SUC 40 MG/1 ML VIAL IV SCH (21:02)
[2020-12-05] MEDS: INSULIN REGULAR 100 UNIT/ML SUBCUT SCH ×4 (00:38→18:40)
[2020-12-05] MEDS: SODIUM CHLORIDE 0.45% 1,000 ML IV SCH ×2 (00:42→11:15)
[2020-12-05] MEDS: hydrALAZINE 20 MG/1 ML VIAL IV PRN (01:04)
[2020-12-05] MEDS: PIPERACILLIN/TAZOBACTAM 3,375 MG in SODIUM CHLORIDE 0.9% 100 ML IV SCH ×3 (04:12→20:38)
[2020-12-05] MEDS: OMEPRAZOLE ODT 20 MG TABLET PEG SCH (05:30)
[2020-12-05 05:32] LABS: Basophils % 0.1 % (0.0-0.8); Hematocrit 27.5 VOL% (35.7-47.0); Hemoglobin 8.4 GM/DL (12.0-16.0); Immature Granulocytes % 1.1 %; Immature Granulocytes Absolute 0.23 #; Lymphocytes # 0.5 10*3/uL (1.4-4.0); Lymphocytes % 2.3 % (21.3-54.2); Mean Corpuscular HGB Conc 30.5 GM/DL (32-36); Mean Corpuscular Volume 73.3 FL (87-102); Mean Platelet Volume 10.2 FL (9.6-12.0); Monocytes % 2.4 % (1.7-12.7); Neutrophils % 94.1 % (38.7-73.9); Platelet Count 295 T/CUMM (130-400); Red Blood Count 3.75 MC/CUMM (3.8-5.5); Red Cell Distribution Width 17.7 % (9.3-17.3); White Blood Count 21.6 T/CUMM (4-12)
[2020-12-05 05:54] LABS: Band Neutrophils 2 % (0-10); Eosinophils 1 % (0-10); Hypochromasia 1+; Lymphocytes 2 % (20-55); Metamyelocytes 1 %; Segmented Neutrophils 93 % (50-85); Total Cells Counted 100
[2020-12-05 05:55] LABS: Microcytosis 1+; Platelet Estimate Normal
[2020-12-05] MEDS: methylPREDNISolone SOD SUC 40 MG/1 ML VIAL IV SCH (09:48)
[2020-12-05] MEDS: cloNIDine 0.1 MG TABLET PO SCH ×3 (09:48→20:26)
[2020-12-05] MEDS: DOCUSATE SODIUM 100 MG/10 ML UDCUP PEG SCH ×2 (09:48→20:26)
[2020-12-05] MEDS: METOPROLOL TARTRATE 100 MG TABLET PO SCH ×2 (09:48→20:26)
[2020-12-05] MEDS: SODIUM HYPOCHLORITE 0.25% IRRIG 473 ML BOTTLE TOP SCH (09:49)
[2020-12-05] MEDS: INSULIN GLARGINE 100 UNIT/ML SUBCUT SCH (15:13)
[2020-12-05] MEDS: ENOXAPARIN 30 MG/0.3 ML SYRINGE SUBCUT SCH (15:14)
[2020-12-06] MEDS: INSULIN REGULAR 100 UNIT/ML SUBCUT SCH ×5 (00:19→23:48)
[2020-12-06] MEDS: SODIUM CHLORIDE 0.45% 1,000 ML IV SCH ×4 (02:03→21:17)
[2020-12-06] MEDS: PIPERACILLIN/TAZOBACTAM 3,375 MG in SODIUM CHLORIDE 0.9% 100 ML IV SCH ×2 (04:48→12:10)
[2020-12-06 05:08] LABS: Basophils % 0.1 % (0.0-0.8); Eosinophils # 0.1 10*3/uL (0.0-0.87); Eosinophils % 0.5 % (0.00-10.9); Hematocrit 25.2 VOL% (35.7-47.0); Hemoglobin 7.9 GM/DL (12.0-16.0); Immature Granulocytes % 1.1 %; Immature Granulocytes Absolute 0.18 #; Lymphocytes % 6.5 % (21.3-54.2); Mean Corpuscular HGB Conc 31.3 GM/DL (32-36); Mean Corpuscular Volume 72.4 FL (87-102); Monocytes % 4.6 % (1.7-12.7); Neutrophils % 87.2 % (38.7-73.9); Platelet Count 333 T/CUMM (130-400); Red Blood Count 3.48 MC/CUMM (3.8-5.5); Red Cell Distribution Width 17.9 % (9.3-17.3); White Blood Count 15.8 T/CUMM (4-12)
[2020-12-06 05:56] LABS: Calcium 8.5 MG/DL (8.5-10.1); Osmolality,Calculated 306.4 MOS/KG (273-304); Potassium 3.7 MMOL/L (3.5-5.1)
[2020-12-06] MEDS: OMEPRAZOLE ODT 20 MG TABLET PEG SCH (05:58)
[2020-12-06] MEDS: INSULIN GLARGINE 100 UNIT/ML SUBCUT SCH (08:09)
[2020-12-06] MEDS: cloNIDine 0.1 MG TABLET PO SCH ×3 (08:09→21:00)
[2020-12-06] MEDS: METOPROLOL TARTRATE 100 MG TABLET PO SCH ×2 (08:09→21:00)
[2020-12-06] MEDS: DOCUSATE SODIUM 100 MG/10 ML UDCUP PEG SCH ×2 (08:09→21:01)
[2020-12-06] MEDS: SODIUM HYPOCHLORITE 0.25% IRRIG 473 ML BOTTLE TOP SCH (08:10)
[2020-12-06] MEDS: FERROUS SULFATE 300 MG/5 ML UDCUP PEG SCH ×2 (10:00→21:00)
[2020-12-06] MEDS: ENOXAPARIN 30 MG/0.3 ML SYRINGE SUBCUT SCH (14:22)
[2020-12-06] MEDS: MEROPENEM 500 MG in SODIUM CHLORIDE 0.9% 100 ML IV SCH (16:48)
[2020-12-07] MEDS: MEROPENEM 500 MG in SODIUM CHLORIDE 0.9% 100 ML IV SCH ×2 (01:18→09:11)
[2020-12-07] MEDS: hydrALAZINE 20 MG/1 ML VIAL IV PRN ×2 (01:18→12:24)
[2020-12-07] MEDS: ACETAMINOPHEN 325 MG TABLET PO PRN (01:20)
[2020-12-07] MEDS: SODIUM CHLORIDE 0.45% 1,000 ML IV SCH ×2 (03:14→10:37)
[2020-12-07] MEDS: INSULIN REGULAR 100 UNIT/ML SUBCUT SCH ×2 (05:50→12:24)
[2020-12-07] MEDS: OMEPRAZOLE ODT 20 MG TABLET PEG SCH (05:52)
[2020-12-07] MEDS: cloNIDine 0.1 MG TABLET PO SCH (09:11)
[2020-12-07] MEDS: FERROUS SULFATE 300 MG/5 ML UDCUP PEG SCH (09:11)
[2020-12-07] MEDS: DOCUSATE SODIUM 100 MG/10 ML UDCUP PEG SCH (09:11)
[2020-12-07] MEDS: INSULIN GLARGINE 100 UNIT/ML SUBCUT SCH (09:11)
[2020-12-07] MEDS: METOPROLOL TARTRATE 100 MG TABLET PO SCH (09:11)
[2020-12-07 09:31] LABS: Basophils % 0.1 % (0.0-0.8); Eosinophils # 0.1 10*3/uL (0.0-0.87); Eosinophils % 0.3 % (0.00-10.9); Hematocrit 26.8 VOL% (35.7-47.0); Hemoglobin 8.2 GM/DL (12.0-16.0); Immature Granulocytes % 2.5 %; Immature Granulocytes Absolute 0.36 #; Lymphocytes # 0.9 10*3/uL (1.4-4.0); Lymphocytes % 6.3 % (21.3-54.2); Mean Corpuscular HGB Conc 30.6 GM/DL (32-36); Mean Platelet Volume 10.7 FL (9.6-12.0); Neutrophils % 85.8 % (38.7-73.9); Platelet Count 390 T/CUMM (130-400); Red Blood Count 3.72 MC/CUMM (3.8-5.5); White Blood Count 14.6 T/CUMM (4-12)
[2020-12-07 09:48] LABS: Calcium 8.6 MG/DL (8.5-10.1); Osmolality,Calculated 297.5 MOS/KG (273-304); Potassium 3.1 MMOL/L (3.5-5.1)
[2020-12-07] MEDS: SODIUM HYPOCHLORITE 0.25% IRRIG 473 ML BOTTLE TOP SCH (10:37)
[2020-12-07] MEDS ORDERED: POTASSIUM CHLORIDE 20 MEQ TABLET PO ONE (12:14)
[2020-12-07] MEDS ORDERED: cloNIDine 0.1 MG TABLET PO SCH (15:00)
[2020-12-07] MEDS: ENOXAPARIN 30 MG/0.3 ML SYRINGE SUBCUT SCH (15:15)
[2020-12-07 16:09] VITALS: BP 189/83
== END 2020-12-07 17:07 | DRG 867 ==
LOC: EDBD → EDUNIT# → N.ED 12:17 → N.EDINP 14:40 → N.5E 16:26
PROVIDERS: ADMIT Internal Medicine; ATTEND Internal Medicine

== ENCOUNTER 2021-04-29 18:34 | Inpatient (IN) ==
[2021-04-29] MEDS ORDERED: PANTOPRAZOLE INJ 80 MG in SODIUM CHLORIDE 0.9% 100 ML IV ONE (19:14)
[2021-04-29 19:40] LABS: Basophils % 0.2 % (0.0-0.8); Eosinophils # 0.2 10*3/uL (0.0-0.87); Eosinophils % 2.5 % (0.00-10.9); Hematocrit 24.3 VOL% (35.7-47.0); Hemoglobin 6.8 GM/DL (12.0-16.0); Immature Granulocytes % 0.5 %; Immature Granulocytes Absolute 0.03 #; Lymphocytes # 1.1 10*3/uL (1.4-4.0); Lymphocytes % 17.2 % (21.3-54.2); Mean Platelet Volume 11.1 FL (9.6-12.0); Monocytes % 7.5 % (1.7-12.7); Neutrophils % 72.1 % (38.7-73.9); Platelet Count 304 T/CUMM (130-400); Red Blood Count 3.47 MC/CUMM (3.8-5.5); Red Cell Distribution Width 18.7 % (9.3-17.3); White Blood Count 6.3 T/CUMM (4-12)
[2021-04-29 19:58] LABS: Alanine Aminotransferase < 9 U/L (13-56); Albumin 2.6 G/DL (3.4-5.0); Alkaline Phosphatase 67 U/L (45-117); Aspartate Amino Transferase 20 U/L (0-37); Bilirubin,Total < 0.39 MG/DL (0.20-1.00); Blood Urea Nitrogen 21 MG/DL (7-18); Calcium 8.8 MG/DL (8.5-10.1); Carbon Dioxide 31 MMOL/L (21-32); Estimated Glom Filtration Rate 101 ML/MIN; Glucose 104 MG/DL (74-106); Osmolality,Calculated 279.5 MOS/KG (273-304); Potassium 4.2 MMOL/L (3.5-5.1); Sodium 139 MMOL/L (136-145); Total Protein 7.1 G/DL (6.4-8.2)
[2021-04-29] MEDS ORDERED: ONDANSETRON 4 MG/2 ML VIAL IV PRN (20:19)
[2021-04-29] MEDS ORDERED: ACETAMINOPHEN 325 MG TABLET PO PRN (20:19)
[2021-04-29] MEDS ORDERED: SODIUM CHLORIDE 0.9% 1,000 ML IV PRN (20:24)
[2021-04-29] MEDS ORDERED: PANTOPRAZOLE INJ 200 MG in SODIUM CHLORIDE 0.9% 250 ML IV SCH ×2 (20:30→21:00)
[2021-04-30] MEDS: DOCUSATE SODIUM 100 MG CAPSULE PO SCH ×3 (00:44→21:46)
[2021-04-30] MEDS ORDERED: LACTATED RINGERS 1,000 ML IV SCH (11:00)
[2021-04-30 11:15] LABS: Basophils % 0.4 % (0.0-0.8); Eosinophils # 0.1 10*3/uL (0.0-0.87); Eosinophils % 1.4 % (0.00-10.9); Immature Granulocytes % 0.4 %; Immature Granulocytes Absolute 0.02 #; Mean Corpuscular Volume 73.3 FL (87-102); Mean Platelet Volume 10.7 FL (9.6-12.0); Monocytes % 6.4 % (1.7-12.7); Neutrophils % 72.4 % (38.7-73.9); Platelet Count 262 T/CUMM (130-400); Red Blood Count 4.09 MC/CUMM (3.8-5.5); Red Cell Distribution Width 19.9 % (9.3-17.3)
[2021-04-30 11:47] LABS: % Iron Saturation 9.3 % (18-50); Ferritin 13.8 ng/mL (8-252)
[2021-04-30] MEDS ORDERED: propofoL 200 MG/20 ML VIAL IV ONE (12:22)
[2021-04-30] MEDS ORDERED: LIDOCAINE 2% 5 ML VIAL ONE (12:22)
[2021-04-30] MEDS ORDERED: LABETALOL 20 MG/4 ML SYRINGE IV ONE (12:53)
[2021-04-30] MEDS ORDERED: traMADol 50 MG TABLET PEG PRN (14:01)
[2021-04-30] MEDS ORDERED: GLUCAGON 1 MG VIAL IM PRN (14:04)
[2021-04-30] MEDS ORDERED: DEXTROSE 50% 25 GM/50 ML VIAL IV PRN (14:04)
[2021-04-30] MEDS: CARBIDOPA/LEVODOPA 25-100 MG TABLET PEG SCH ×2 (15:14→21:46)
[2021-04-30] MEDS: hydrALAZINE 25 MG TABLET PEG SCH ×2 (15:14→21:48)
[2021-04-30] MEDS: FERRIC GLUCONATE COMPLEX 125 MG in SODIUM CHLORIDE 0.9% 100 ML IV SCH (17:20)
[2021-04-30] MEDS: INSULIN REGULAR 100 UNIT/ML SUBCUT SCH (17:21)
[2021-04-30] MEDS: ALBUTEROL/IPRATROPIUM 3 ML NEB RESP TX SCH (20:36)
[2021-04-30] MEDS: METOPROLOL TARTRATE 100 MG TABLET PEG SCH (21:46)
[2021-04-30] MEDS: POLYVINYL ALCOHOL 1.4% OPH SOLN 15 ML BOTTLE BOTH EYES SCH (21:48)
[2021-04-30] MEDS: PANTOPRAZOLE INJ 200 MG in SODIUM CHLORIDE 0.9% 250 ML IV SCH (23:47)
[2021-05-01] MEDS: ALBUTEROL/IPRATROPIUM 3 ML NEB RESP TX SCH ×4 (00:39→19:40)
[2021-05-01] MEDS: INSULIN REGULAR 100 UNIT/ML SUBCUT SCH ×4 (03:01→18:38)
[2021-05-01 05:16] LABS: Basophils % 0.4 % (0.0-0.8); Eosinophils % 0.8 % (0.00-10.9); Hemoglobin 8.4 GM/DL (12.0-16.0); Immature Granulocytes % 0.4 %; Immature Granulocytes Absolute 0.02 #; Lymphocytes # 0.9 10*3/uL (1.4-4.0); Lymphocytes % 17.7 % (21.3-54.2); Mean Corpuscular Volume 73.1 FL (87-102); Mean Platelet Volume 10.9 FL (9.6-12.0); Neutrophils % 71.7 % (38.7-73.9); Platelet Count 276 T/CUMM (130-400); Red Blood Count 3.83 MC/CUMM (3.8-5.5); Red Cell Distribution Width 20.1 % (9.3-17.3); White Blood Count 4.8 T/CUMM (4-12)
[2021-05-01 05:38] LABS: Osmolality,Calculated 281.1 MOS/KG (273-304); Potassium 3.7 MMOL/L (3.5-5.1)
[2021-05-01 05:39] LABS: Hypochromasia 2+; Microcytosis 2+; Polychromasia Slight; Spherocytes Slight
[2021-05-01 05:40] LABS: Platelet Estimate Normal
[2021-05-01] MEDS: busPIRone 5 MG TABLET PEG SCH (09:45)
[2021-05-01] MEDS: CARBIDOPA/LEVODOPA 25-100 MG TABLET PEG SCH ×3 (09:46→22:07)
[2021-05-01] MEDS: LORATADINE 10 MG TABLET PEG SCH (09:46)
[2021-05-01] MEDS: traMADol 50 MG TABLET PEG SCH (09:46)
[2021-05-01] MEDS: DOCUSATE SODIUM 100 MG/10 ML UDCUP PO SCH (09:46)
[2021-05-01] MEDS: METOPROLOL TARTRATE 100 MG TABLET PEG SCH ×2 (09:46→22:06)
[2021-05-01] MEDS: hydrALAZINE 25 MG TABLET PEG SCH ×2 (09:46→14:50)
[2021-05-01] MEDS: POLYVINYL ALCOHOL 1.4% OPH SOLN 15 ML BOTTLE BOTH EYES SCH ×2 (09:48→22:08)
[2021-05-01] MEDS: FERRIC GLUCONATE COMPLEX 125 MG in SODIUM CHLORIDE 0.9% 100 ML IV SCH (09:48)
[2021-05-01] MEDS: INSULIN GLARGINE 100 UNIT/ML SUBCUT SCH (10:16)
[2021-05-01] MEDS: DOCUSATE SODIUM 100 MG CAPSULE PO SCH ×3 (10:16→22:19)
[2021-05-01] MEDS: SODIUM HYPOCHLORITE 0.25% IRRIG 473 ML BOTTLE TOP SCH (10:25)
[2021-05-02] MEDS: ALBUTEROL/IPRATROPIUM 3 ML NEB RESP TX SCH ×3 (00:43→13:33)
[2021-05-02] MEDS: INSULIN REGULAR 100 UNIT/ML SUBCUT SCH ×3 (01:34→12:26)
[2021-05-02 05:22] LABS: Basophils % 0.3 % (0.0-0.8); Eosinophils # 0.1 10*3/uL (0.0-0.87); Eosinophils % 1.8 % (0.00-10.9); Hematocrit 29.3 VOL% (35.7-47.0); Hemoglobin 8.7 GM/DL (12.0-16.0); Immature Granulocytes % 0.3 %; Immature Granulocytes Absolute 0.02 #; Lymphocytes # 0.8 10*3/uL (1.4-4.0); Lymphocytes % 12.4 % (21.3-54.2); Mean Corpuscular HGB Conc 29.7 GM/DL (32-36); Mean Corpuscular Volume 73.6 FL (87-102); Mean Platelet Volume 10.9 FL (9.6-12.0); Monocytes % 9.6 % (1.7-12.7); Neutrophils % 75.6 % (38.7-73.9); Platelet Count 290 T/CUMM (130-400); Red Blood Count 3.98 MC/CUMM (3.8-5.5); Red Cell Distribution Width 21.2 % (9.3-17.3)
[2021-05-02] MEDS: PANTOPRAZOLE INJ 200 MG in SODIUM CHLORIDE 0.9% 250 ML IV SCH (07:12)
[2021-05-02] MEDS: POLYVINYL ALCOHOL 1.4% OPH SOLN 15 ML BOTTLE BOTH EYES SCH (10:01)
[2021-05-02] MEDS: FERRIC GLUCONATE COMPLEX 125 MG in SODIUM CHLORIDE 0.9% 100 ML IV SCH (10:01)
[2021-05-02] MEDS: DOCUSATE SODIUM 100 MG/10 ML UDCUP PO SCH (10:01)
[2021-05-02] MEDS: LORATADINE 10 MG TABLET PEG SCH (10:01)
[2021-05-02] MEDS: CARBIDOPA/LEVODOPA 25-100 MG TABLET PEG SCH ×2 (10:02→15:56)
[2021-05-02] MEDS: busPIRone 5 MG TABLET PEG SCH (10:02)
[2021-05-02] MEDS: INSULIN GLARGINE 100 UNIT/ML SUBCUT SCH (10:02)
[2021-05-02] MEDS: traMADol 50 MG TABLET PEG SCH (10:02)
[2021-05-02] MEDS: METOPROLOL TARTRATE 100 MG TABLET PEG SCH (10:03)
[2021-05-02] MEDS: SODIUM HYPOCHLORITE 0.25% IRRIG 473 ML BOTTLE TOP SCH (10:03)
[2021-05-02] MEDS: DOCUSATE SODIUM 100 MG CAPSULE PO SCH (10:29)
[2021-05-02 16:21] VITALS: BP 187/84
== END 2021-05-02 18:15 | DRG 981 ==
LOC: EDUNIT# → EDBD → N.ED 18:34 → N.5E 20:19
PROVIDERS: ADMIT Internal Medicine; ATTEND Internal Medicine
PROC: EGDWPEG (ICD-10-PCS; 2021-04-30 09:05)

== ENCOUNTER 2021-10-21 19:31 | Inpatient (IN) ==
[2021-10-21] MEDS ORDERED: hydrALAZINE 20 MG/1 ML VIAL IV STA (20:25)
[2021-10-21] MEDS ORDERED: SODIUM CHLORIDE 0.9% 500 ML IV STA (20:28)
[2021-10-21] MEDS ORDERED: CLINDAMYCIN INJ 600 MG/50 ML PREMIX IV STA (20:28)
[2021-10-21 20:41] LABS: Basophils % 0.2 % (0.0-0.8); Hematocrit 46.4 VOL% (35.7-47.0); Hemoglobin 14.4 GM/DL (12.0-16.0); Immature Granulocytes % 0.6 %; Immature Granulocytes Absolute 0.15 #; Lymphocytes # 0.7 10*3/uL (1.4-4.0); Mean Corpuscular Volume 72.5 FL (87-102); Monocytes # 0.9 10*3/uL (0.11-0.8); Neutrophils % 92.2 % (38.7-73.9); Platelet Count 293 T/CUMM (130-400); Red Cell Distribution Width 20.8 % (9.3-17.3); White Blood Count 23.3 T/CUMM (4-12)
[2021-10-21 20:43] LABS: Bacteria,Urine Moderate /HPF (Few); Bilirubin,Urine Negative (Negative); Blood, Urine Small mg/dL (Negative); Glucose,Urine (UA) Negative (Negative); Hyaline Casts,Urine 24 /LPF (0-3); Ketones,Urine Negative (Negative); Mucus,Urine Occasional /LPF (Occasional); Nitrite,Urine Positive (Negative); Protein,Urine >=300 mg/dL (Negative); RBC,Urine 5 /HPF (0-4); Urine Appearance Clear (Clear); Urine Color Yellow (Yellow); Urine Urobilinogen 0.2 eU/dL (<2.0); Urine pH 8.5 (4.5-8.0)
[2021-10-21 21:04] LABS: Arterial Base Excess iSTAT 7 MMOL/L (-2.5-2.5); Arterial Bicarbonate iSTAT 29.8 MMOL/L (20-26); Arterial O2 Saturation iSTAT 98 % (95-100); Arterial PCO2 iSTAT 37 MM HG (35-48); Arterial PO2 iSTAT 95 MM HG (80-95); Arterial Total CO2 iSTAT 31 MMO/L (23-27); Arterial pH iSTAT 7.518 (7.35-7.45)
[2021-10-21] MEDS ORDERED: SODIUM CHLORIDE 0.9% 1,000 ML IV STA (21:06)
[2021-10-21 21:11] LABS: Lymphocytes 3 % (20-55); Total Cells Counted 100
[2021-10-21 21:13] LABS: Microcytosis 1+; Platelet Estimate Adequate
[2021-10-21 21:14] LABS: Polychromasia 1+
[2021-10-21 21:42] LABS: Alanine Aminotransferase 23 U/L (13-56); Albumin 3.3 G/DL (3.4-5.0); Alkaline Phosphatase 106 U/L (45-117); Aspartate Amino Transferase 52 U/L (0-37); Blood Urea Nitrogen 21 MG/DL (7-18); Calcium 10.4 MG/DL (8.5-10.1); Carbon Dioxide 27 MMOL/L (21-32); Chloride 100 MMOL/L (98-107); Estimated Glom Filtration Rate 56 ML/MIN; Glucose 201 MG/DL (74-106); Osmolality,Calculated 283.7 MOS/KG (273-304); Potassium 3.8 MMOL/L (3.5-5.1); Sodium 138 MMOL/L (136-145); Total Protein 9.5 G/DL (6.4-8.2)
[2021-10-21 21:48] LABS: Barbiturates Screen,Urine Negative (Negative); Benzodiazepines Screen,Urine Negative (Negative); Cannabinoid Screen,Urine Negative (Negative); Opiate Screen,Urine Negative (Negative); Phencyclidine Screen,Urine Negative (Negative)
[2021-10-21 21:48] LABS: INR 1.1; PT Patient Result 11.8 SECS (10.5-12.0)
[2021-10-21] MEDS ORDERED: LABETALOL 20 MG/4 ML SYRINGE IV STA (23:13)
[2021-10-21] MEDS ORDERED: ACETAMINOPHEN 325 MG TABLET PEG PRN (23:37)
[2021-10-21] MEDS ORDERED: GLUCAGON 1 MG VIAL IM PRN (23:37)
[2021-10-21] MEDS ORDERED: ONDANSETRON 4 MG/2 ML VIAL IV PRN (23:37)
[2021-10-21] MEDS ORDERED: ALBUTEROL/IPRATROPIUM 3 ML NEB RESP TX SCH (23:37)
[2021-10-21] MEDS ORDERED: ACETAMINOPHEN 325 MG TABLET PO PRN (23:37)
[2021-10-21] MEDS ORDERED: IBUPROFEN 600 MG TABLET PO PRN (23:37)
[2021-10-21] MEDS ORDERED: DEXTROSE 10% 250 ML BAG IV PRN (23:37)
[2021-10-21] MEDS ORDERED: PROMETHAZINE 25 MG/1 ML VIAL IM PRN (23:37)
[2021-10-22] MEDS: INSULIN REGULAR 100 UNIT/ML SUBCUT SCH ×4 (01:11→17:12)
[2021-10-22 01:13] LABS: Basophils % 0.2 % (0.0-0.8); Hematocrit 38.2 VOL% (35.7-47.0); Hemoglobin 11.8 GM/DL (12.0-16.0); Immature Granulocytes % 0.4 %; Immature Granulocytes Absolute 0.08 #; Lymphocytes # 0.7 10*3/uL (1.4-4.0); Lymphocytes % 3.6 % (21.3-54.2); Mean Corpuscular HGB Conc 30.9 GM/DL (32-36); Mean Corpuscular Volume 71.9 FL (87-102); Monocytes % 5.1 % (1.7-12.7); Neutrophils % 90.7 % (38.7-73.9); Platelet Count 156 T/CUMM (130-400); Red Blood Count 5.31 MC/CUMM (3.8-5.5); White Blood Count 19.2 T/CUMM (4-12)
[2021-10-22] MEDS: SODIUM CHLORIDE 0.9% 1,000 ML IV SCH ×4 (01:18→23:09)
[2021-10-22] MEDS: LEVOFLOXACIN INJ 750 MG/150 ML PREMIX IV SCH (01:18)
[2021-10-22 01:30] LABS: Albumin 2.5 G/DL (3.4-5.0); Bilirubin,Total 0.4 MG/DL (0.20-1.00); Calcium 9.1 MG/DL (8.5-10.1); Osmolality,Calculated 284.5 MOS/KG (273-304); Potassium 3.4 MMOL/L (3.5-5.1); Total Protein 7.6 G/DL (6.4-8.2)
[2021-10-22 02:12] LABS: Lymphocytes 7 % (20-55); Total Cells Counted 100
[2021-10-22 02:13] LABS: Platelet Estimate Adequate
[2021-10-22] MEDS: CLINDAMYCIN INJ 600 MG/50 ML PREMIX IV SCH ×4 (03:02→20:56)
[2021-10-22] MEDS: ALBUTEROL/IPRATROPIUM 3 ML NEB RESP TX SCH ×5 (03:15→19:20)
[2021-10-22] MEDS: LORATADINE 10 MG TABLET PEG SCH (08:38)
[2021-10-22] MEDS: POTASSIUM BICARB EFFERVESCENT 20 MEQ TAB.EFF PEG SCH ×2 (08:38→20:56)
[2021-10-22] MEDS: FERROUS SULFATE 300 MG/5 ML UDCUP PEG SCH ×2 (08:38→20:56)
[2021-10-22] MEDS: DOCUSATE SODIUM 100 MG/10 ML UDCUP PO SCH ×2 (08:38→20:56)
[2021-10-22] MEDS: traMADol 50 MG TABLET PEG SCH (08:38)
[2021-10-22] MEDS: METOPROLOL TARTRATE 100 MG TABLET PEG SCH ×2 (08:39→20:56)
[2021-10-22] MEDS: MECLIZINE 25 MG TABLET PO SCH (08:39)
[2021-10-22] MEDS: OMEPRAZOLE ODT 20 MG TABLET PEG SCH (08:39)
[2021-10-22] MEDS: INSULIN GLARGINE 100 UNIT/ML SUBCUT SCH ×2 (08:41→10:17)
[2021-10-22] MEDS: CARBIDOPA/LEVODOPA 25-100 MG TABLET PEG SCH ×3 (08:43→20:56)
[2021-10-22] MEDS ORDERED: DOCUSATE SODIUM 100 MG/10 ML UDCUP PO SCH (09:00)
[2021-10-22] MEDS ORDERED: PANTOPRAZOLE 40 MG VIAL IV SCH (09:00)
[2021-10-22] MEDS: MULTIVITAMIN LIQUID (CENTRUM) 60 ML BOTTLE PO SCH (10:17)
[2021-10-22] MEDS ORDERED: POTASSIUM CHLORIDE 20 MEQ TABLET PO ONE (22:37)
[2021-10-22] MEDS ORDERED: POTASSIUM CHLORIDE 20 MEQ TABLET PO PRN (22:37)
[2021-10-23] MEDS: INSULIN REGULAR 100 UNIT/ML SUBCUT SCH ×4 (00:07→18:35)
[2021-10-23] MEDS: ALBUTEROL/IPRATROPIUM 3 ML NEB RESP TX SCH ×6 (00:10→19:50)
[2021-10-23] MEDS: LEVOFLOXACIN INJ 750 MG/150 ML PREMIX IV SCH (00:41)
[2021-10-23] MEDS: CLINDAMYCIN INJ 600 MG/50 ML PREMIX IV SCH ×4 (03:04→22:43)
[2021-10-23 04:54] LABS: Basophils % 0.1 % (0.0-0.8); Hematocrit 26.5 VOL% (35.7-47.0); Immature Granulocytes % 0.7 %; Immature Granulocytes Absolute 0.08 #; Lymphocytes # 0.9 10*3/uL (1.4-4.0); Lymphocytes % 7.8 % (21.3-54.2); Mean Corpuscular HGB Conc 30.2 GM/DL (32-36); Mean Corpuscular Volume 74.2 FL (87-102); Mean Platelet Volume 11.1 FL (9.6-12.0); Monocytes # 0.9 10*3/uL (0.11-0.8); Monocytes % 7.8 % (1.7-12.7); Neutrophils % 83.6 % (38.7-73.9); Platelet Count 157 T/CUMM (130-400); Red Blood Count 3.57 MC/CUMM (3.8-5.5)
[2021-10-23 05:16] LABS: Hypochromia 1+
[2021-10-23 05:17] LABS: Microcytosis 2+; Platelet Estimate Adequate
[2021-10-23 05:19] LABS: Albumin 2.1 G/DL (3.4-5.0); Bilirubin,Total 0.4 MG/DL (0.20-1.00); Calcium 8.2 MG/DL (8.5-10.1); Potassium 3.8 MMOL/L (3.5-5.1); Total Protein 6.1 G/DL (6.4-8.2)
[2021-10-23] MEDS: CARBIDOPA/LEVODOPA 25-100 MG TABLET PEG SCH ×3 (09:56→20:58)
[2021-10-23] MEDS: MECLIZINE 25 MG TABLET PO SCH (09:56)
[2021-10-23] MEDS: traMADol 50 MG TABLET PEG SCH (09:57)
[2021-10-23] MEDS: POTASSIUM BICARB EFFERVESCENT 20 MEQ TAB.EFF PEG SCH ×2 (09:57→20:58)
[2021-10-23] MEDS: LORATADINE 10 MG TABLET PEG SCH (09:57)
[2021-10-23] MEDS: OMEPRAZOLE ODT 20 MG TABLET PEG SCH (09:57)
[2021-10-23] MEDS: METOPROLOL TARTRATE 100 MG TABLET PEG SCH ×2 (09:57→20:58)
[2021-10-23] MEDS: DOCUSATE SODIUM 100 MG/10 ML UDCUP PO SCH ×2 (09:58→20:58)
[2021-10-23] MEDS: FERROUS SULFATE 300 MG/5 ML UDCUP PEG SCH ×2 (09:58→20:58)
[2021-10-23] MEDS: INSULIN GLARGINE 100 UNIT/ML SUBCUT SCH (09:58)
[2021-10-23] MEDS: MULTIVITAMIN LIQUID (CENTRUM) 60 ML BOTTLE PO SCH (10:02)
[2021-10-23] MEDS: SODIUM CHLORIDE 0.9% 1,000 ML IV SCH ×3 (12:34→22:34)
[2021-10-23] MEDS ORDERED: TUBERCULIN SKIN TEST 0.1 ML SYRINGE INTRADERM ONE (13:00)
[2021-10-24] MEDS: ALBUTEROL/IPRATROPIUM 3 ML NEB RESP TX SCH ×6 (00:57→20:05)
[2021-10-24] MEDS: LEVOFLOXACIN INJ 750 MG/150 ML PREMIX IV SCH (01:05)
[2021-10-24] MEDS: INSULIN REGULAR 100 UNIT/ML SUBCUT SCH ×4 (01:06→19:19)
[2021-10-24] MEDS: CLINDAMYCIN INJ 600 MG/50 ML PREMIX IV SCH ×3 (03:03→15:01)
[2021-10-24 05:56] LABS: Basophils % 0.1 % (0.0-0.8); Eosinophils % 0.3 % (0.00-10.9); Hematocrit 25.7 VOL% (35.7-47.0); Hemoglobin 7.7 GM/DL (12.0-16.0); Immature Granulocytes % 0.7 %; Immature Granulocytes Absolute 0.05 #; Lymphocytes # 0.9 10*3/uL (1.4-4.0); Lymphocytes % 12.9 % (21.3-54.2); Mean Corpuscular Volume 74.9 FL (87-102); Monocytes # 0.6 10*3/uL (0.11-0.8); Monocytes % 8.2 % (1.7-12.7); Neutrophils % 77.8 % (38.7-73.9); Platelet Count 127 T/CUMM (130-400); Red Blood Count 3.43 MC/CUMM (3.8-5.5); Red Cell Distribution Width 20.2 % (9.3-17.3); White Blood Count 6.8 T/CUMM (4-12)
[2021-10-24 06:17] LABS: Hypochromia 1+
[2021-10-24 06:18] LABS: Microcytosis 2+; Ovalocytes Slight; Platelet Estimate Adequate
[2021-10-24] MEDS: SODIUM CHLORIDE 0.9% 1,000 ML IV SCH ×4 (06:25→22:19)
[2021-10-24 06:27] LABS: Alanine Aminotransferase 13 U/L (13-56); Albumin 2.1 G/DL (3.4-5.0); Alkaline Phosphatase 58 U/L (45-117); Aspartate Amino Transferase 15 U/L (0-37); Bilirubin,Total < 0.39 MG/DL (0.20-1.00); Blood Urea Nitrogen 26 MG/DL (7-18); Calcium 7.9 MG/DL (8.5-10.1); Carbon Dioxide 24 MMOL/L (21-32); Chloride 108 MMOL/L (98-107); Estimated Glom Filtration Rate 88 ML/MIN; Glucose 89 MG/DL (74-106); Osmolality,Calculated 280.5 MOS/KG (273-304); Potassium 4.3 MMOL/L (3.5-5.1); Sodium 139 MMOL/L (136-145)
[2021-10-24] MEDS: CARBIDOPA/LEVODOPA 25-100 MG TABLET PEG SCH ×3 (09:45→21:59)
[2021-10-24] MEDS: MULTIVITAMIN LIQUID (CENTRUM) 60 ML BOTTLE PO SCH (09:45)
[2021-10-24] MEDS: FERROUS SULFATE 300 MG/5 ML UDCUP PEG SCH ×2 (09:45→21:58)
[2021-10-24] MEDS: traMADol 50 MG TABLET PEG SCH (09:45)
[2021-10-24] MEDS: METOPROLOL TARTRATE 100 MG TABLET PEG SCH ×2 (09:45→21:59)
[2021-10-24] MEDS: LORATADINE 10 MG TABLET PEG SCH (09:45)
[2021-10-24] MEDS: OMEPRAZOLE ODT 20 MG TABLET PEG SCH (09:45)
[2021-10-24] MEDS: POTASSIUM BICARB EFFERVESCENT 20 MEQ TAB.EFF PEG SCH ×2 (09:45→21:58)
[2021-10-24] MEDS: MECLIZINE 25 MG TABLET PO SCH (09:45)
[2021-10-24] MEDS: DOCUSATE SODIUM 100 MG/10 ML UDCUP PO SCH ×2 (09:45→21:58)
[2021-10-24] MEDS ORDERED: SODIUM CHLORIDE 0.9% 1,000 ML IV PRN (09:48)
[2021-10-24] MEDS ORDERED: VANCOMYCIN INJ 1,000 MG in SODIUM CHLORIDE 0.9% 250 ML IV ONE ×2 (17:11→18:00)
[2021-10-24] MEDS: INSULIN GLARGINE 100 UNIT/ML SUBCUT SCH (19:19)
[2021-10-24] MEDS ORDERED: VANCOMYCIN INJ 1,000 MG in SODIUM CHLORIDE 0.9% 250 ML IV SCH (21:00)
[2021-10-24] MEDS: DOXYCYCLINE HYCLATE 100 MG CAPSULE PO SCH (21:59)
[2021-10-25] MEDS: ALBUTEROL/IPRATROPIUM 3 ML NEB RESP TX SCH ×5 (00:13→14:20)
[2021-10-25] MEDS: INSULIN REGULAR 100 UNIT/ML SUBCUT SCH ×3 (02:06→17:09)
[2021-10-25 05:52] LABS: Basophils % 0.4 % (0.0-0.8); Eosinophils # 0.1 10*3/uL (0.0-0.87); Eosinophils % 1.4 % (0.00-10.9); Hematocrit 29.3 VOL% (35.7-47.0); Immature Granulocytes % 0.9 %; Immature Granulocytes Absolute 0.05 #; Lymphocytes # 0.8 10*3/uL (1.4-4.0); Lymphocytes % 13.3 % (21.3-54.2); Mean Corpuscular HGB Conc 30.7 GM/DL (32-36); Mean Corpuscular Volume 76.3 FL (87-102); Monocytes # 0.6 10*3/uL (0.11-0.8); Monocytes % 10.5 % (1.7-12.7); Neutrophils % 73.5 % (38.7-73.9); Platelet Count 141 T/CUMM (130-400); Red Blood Count 3.84 MC/CUMM (3.8-5.5); Red Cell Distribution Width 20.1 % (9.3-17.3); White Blood Count 5.6 T/CUMM (4-12)
[2021-10-25 06:08] LABS: Albumin 1.8 G/DL (3.4-5.0); Bilirubin,Total 0.4 MG/DL (0.20-1.00); Calcium 8.4 MG/DL (8.5-10.1)
[2021-10-25 06:15] LABS: Osmolality,Calculated 284.3 MOS/KG (273-304); Potassium 4.4 MMOL/L (3.5-5.1)
[2021-10-25] MEDS: SODIUM CHLORIDE 0.9% 1,000 ML IV SCH (06:36)
[2021-10-25] MEDS: OMEPRAZOLE ODT 20 MG TABLET PEG SCH (09:05)
[2021-10-25] MEDS: POTASSIUM BICARB EFFERVESCENT 20 MEQ TAB.EFF PEG SCH (09:05)
[2021-10-25] MEDS: DOXYCYCLINE HYCLATE 100 MG CAPSULE PO SCH (09:05)
[2021-10-25] MEDS: METOPROLOL TARTRATE 100 MG TABLET PEG SCH (09:06)
[2021-10-25] MEDS: CARBIDOPA/LEVODOPA 25-100 MG TABLET PEG SCH ×2 (09:06→17:11)
[2021-10-25] MEDS: traMADol 50 MG TABLET PEG SCH (09:07)
[2021-10-25] MEDS: LORATADINE 10 MG TABLET PEG SCH (09:08)
[2021-10-25] MEDS: DOCUSATE SODIUM 100 MG/10 ML UDCUP PO SCH (09:08)
[2021-10-25] MEDS: MECLIZINE 25 MG TABLET PO SCH (09:08)
[2021-10-25] MEDS: FERROUS SULFATE 300 MG/5 ML UDCUP PEG SCH (09:08)
[2021-10-25] MEDS: MULTIVITAMIN LIQUID (CENTRUM) 60 ML BOTTLE PO SCH (09:09)
[2021-10-25] MEDS ORDERED: VANCOMYCIN INJ 1,000 MG in SODIUM CHLORIDE 0.9% 250 ML IV SCH (10:00)
[2021-10-25 15:31] VITALS: BP 166/90
== END 2021-10-25 15:00 | disposition hospice, inpatient (51) | DRG 177 ==
LOC: EDBD → EDUNIT# → N.ED 19:31 → N.EDINP 23:17 → N.5E 10-22 00:27
PROVIDERS: ADMIT Internal Medicine; ATTEND Internal Medicine

== ENCOUNTER 2022-01-01 10:14 | Inpatient (IN) ==
[2022-01-01 13:41] LABS: Basophils % 0.1 % (0.0-0.8); Hematocrit 32.8 VOL% (35.7-47.0); Hemoglobin 9.6 GM/DL (12.0-16.0); Immature Granulocytes % 0.7 %; Lymphocytes # 0.7 10*3/uL (1.4-4.0); Lymphocytes % 4.3 % (21.3-54.2); Mean Corpuscular HGB Conc 29.3 GM/DL (32-36); Mean Corpuscular Volume 73.5 FL (87-102); Mean Platelet Volume 10.7 FL (9.6-12.0); Monocytes # 0.8 10*3/uL (0.11-0.8); Monocytes % 5.1 % (1.7-12.7); Neutrophils % 89.8 % (38.7-73.9); Platelet Count 383 T/CUMM (130-400); Red Blood Count 4.46 MC/CUMM (3.8-5.5); Red Cell Distribution Width 19.8 % (9.3-17.3); White Blood Count 15.2 T/CUMM (4-12)
[2022-01-01 14:02] LABS: Alanine Aminotransferase < 6 U/L (13-56); Albumin 2.4 G/DL (3.4-5.0); Alkaline Phosphatase 84 U/L (45-117); Aspartate Amino Transferase 19 U/L (0-37); Blood Urea Nitrogen 20 MG/DL (7-18); Calcium 9.6 MG/DL (8.5-10.1); Carbon Dioxide 30 MMOL/L (21-32); Chloride 101 MMOL/L (98-107); Glucose 166 MG/DL (74-106); Osmolality,Calculated 276.1 MOS/KG (273-304); Potassium 4.9 MMOL/L (3.5-5.1); Sodium 135 MMOL/L (136-145)
[2022-01-01 14:27] LABS: INR 1.1; PT Patient Result 11.6 SECS (10.5-12.0); Partial Thromboplastin Time 31.8 SECS (23.7-32.9)
[2022-01-01] MEDS ORDERED: LEVOFLOXACIN INJ 750 MG in PREMIX 1 EACH IV STA (15:39)
[2022-01-01] MEDS ORDERED: ACETAMINOPHEN 325 MG TABLET PO PRN (15:39)
[2022-01-01] MEDS ORDERED: ONDANSETRON 4 MG/2 ML VIAL IV PRN (15:39)
[2022-01-01 15:48] LABS: Amylase,Body Fluid 22 U/L; Glucose,Pleural Fluid 178 MG/DL; LDH,Body Fluid 117 U/L; Total Protein,Body Fluid 5.2 G/DL; Triglycerides,Body Fluid 32 MG/DL
[2022-01-01 16:19] LABS: Lymphocytes,Pleural Fluid 11 %; Monocytes,Pleural Fluid 13 %; Neutrophils,Pleural Fluid 76 %
[2022-01-01 16:20] LABS: RBC,Pleural Fluid 800 T/CUMM
[2022-01-01] MEDS ORDERED: PROMETHAZINE 25 MG/1 ML VIAL IM PRN (17:04)
[2022-01-01] MEDS ORDERED: ACETAMINOPHEN 325 MG TABLET PEG PRN (17:04)
[2022-01-01] MEDS: SODIUM CHLORIDE 0.9% 1,000 ML IV SCH (17:26)
[2022-01-01 19:07] LABS: Hypochromia 1+; Lymphocytes 3 % (20-55); Microcytosis 1+; Platelet Estimate Normal; Polychromasia Slight; Total Cells Counted 100
[2022-01-01] MEDS: CARBIDOPA/LEVODOPA 25-100 MG TABLET PEG SCH (21:13)
[2022-01-01] MEDS: DOCUSATE SODIUM 100 MG CAPSULE PO SCH (21:13)
[2022-01-01] MEDS: FERROUS SULFATE 325 MG TABLET PO SCH (21:13)
[2022-01-01] MEDS: POLYVINYL ALCOHOL 1.4% OPH SOLN 15 ML BOTTLE BOTH EYES SCH (21:32)
[2022-01-02] MEDS: SODIUM CHLORIDE 0.9% 1,000 ML IV SCH ×2 (04:27→18:49)
[2022-01-02 04:54] LABS: Basophils % 0.3 % (0.0-0.8); Eosinophils % 0.4 % (0.00-10.9); Hematocrit 26.7 VOL% (35.7-47.0); Hemoglobin 7.7 GM/DL (12.0-16.0); Immature Granulocytes % 0.8 %; Immature Granulocytes Absolute 0.06 #; Lymphocytes # 0.9 10*3/uL (1.4-4.0); Lymphocytes % 12.1 % (21.3-54.2); Mean Corpuscular HGB Conc 28.8 GM/DL (32-36); Mean Corpuscular Volume 74.6 FL (87-102); Mean Platelet Volume 10.8 FL (9.6-12.0); Monocytes # 0.7 10*3/uL (0.11-0.8); Monocytes % 9.4 % (1.7-12.7); Platelet Count 314 T/CUMM (130-400); Red Blood Count 3.58 MC/CUMM (3.8-5.5); White Blood Count 7.8 T/CUMM (4-12)
[2022-01-02 05:10] LABS: Eosinophils 2 % (0-10); Lymphocytes 15 % (20-55); Total Cells Counted 100
[2022-01-02 05:11] LABS: Anisocytosis 1+; Calcium 9.5 MG/DL (8.5-10.1); Hypochromia 1+; Microcytosis 1+; Potassium 4.2 MMOL/L (3.5-5.1)
[2022-01-02 05:12] LABS: Platelet Estimate Normal
[2022-01-02] MEDS: ALBUTEROL/IPRATROPIUM 3 ML NEB RESP TX SCH ×3 (07:42→19:35)
[2022-01-02] MEDS: FERROUS SULFATE 325 MG TABLET PO SCH ×2 (09:32→20:57)
[2022-01-02] MEDS: lisinopriL 10 MG TABLET PEG SCH (09:32)
[2022-01-02] MEDS: PANTOPRAZOLE 40 MG TABLET PO SCH (09:32)
[2022-01-02] MEDS: LORATADINE 10 MG TABLET PEG SCH (09:32)
[2022-01-02] MEDS: MECLIZINE 25 MG TABLET PEG SCH (09:32)
[2022-01-02] MEDS: CARBIDOPA/LEVODOPA 25-100 MG TABLET PEG SCH ×3 (09:33→20:57)
[2022-01-02] MEDS: DIGOXIN 0.125 MG TABLET PEG SCH (09:33)
[2022-01-02] MEDS: methylPREDNISolone SOD SUC 40 MG/1 ML VIAL IV SCH ×2 (09:40→20:55)
[2022-01-02] MEDS: INSULIN GLARGINE 100 UNIT/ML SUBCUT SCH (09:40)
[2022-01-02] MEDS: DOXYCYCLINE HYCLATE INJ 100 MG in SODIUM CHLORIDE 0.9% 100 ML IV SCH ×2 (09:41→20:52)
[2022-01-02] MEDS: DOCUSATE SODIUM 100 MG CAPSULE PO SCH ×2 (09:41→21:00)
[2022-01-02] MEDS: POLYVINYL ALCOHOL 1.4% OPH SOLN 15 ML BOTTLE BOTH EYES SCH ×2 (09:41→20:59)
[2022-01-02] MEDS: DOCUSATE SODIUM 100 MG/10 ML UDCUP PEG SCH (09:41)
[2022-01-02] MEDS: LEVOFLOXACIN INJ 500 MG/100 ML PREMIX IV SCH (11:39)
[2022-01-02] MEDS ORDERED: DEXTROSE 10% 250 ML BAG IV PRN (13:53)
[2022-01-02] MEDS ORDERED: GLUCAGON 1 MG VIAL IM PRN (13:53)
[2022-01-02] MEDS: INSULIN REGULAR 100 UNIT/ML SUBCUT SCH (17:21)
[2022-01-03] MEDS: METOPROLOL TARTRATE 25 MG TABLET PEG SCH ×3 (00:08→21:12)
[2022-01-03] MEDS: INSULIN REGULAR 100 UNIT/ML SUBCUT SCH ×4 (01:06→18:17)
[2022-01-03] MEDS: ALBUTEROL/IPRATROPIUM 3 ML NEB RESP TX SCH ×4 (01:08→20:12)
[2022-01-03 05:48] LABS: Basophils % 0.1 % (0.0-0.8); Hematocrit 27.5 VOL% (35.7-47.0); Hemoglobin 7.9 GM/DL (12.0-16.0); Immature Granulocytes % 0.7 %; Immature Granulocytes Absolute 0.06 #; Lymphocytes # 0.3 10*3/uL (1.4-4.0); Lymphocytes % 4.1 % (21.3-54.2); Mean Corpuscular HGB Conc 28.7 GM/DL (32-36); Mean Corpuscular Volume 73.5 FL (87-102); Mean Platelet Volume 11.1 FL (9.6-12.0); Monocytes # 0.3 10*3/uL (0.11-0.8); Monocytes % 3.9 % (1.7-12.7); Neutrophils % 91.2 % (38.7-73.9); Platelet Count 391 T/CUMM (130-400); Red Blood Count 3.74 MC/CUMM (3.8-5.5); Red Cell Distribution Width 19.1 % (9.3-17.3); White Blood Count 8.3 T/CUMM (4-12)
[2022-01-03 06:09] LABS: Band Neutrophils 2 % (0-10); Lymphocytes 6 % (20-55); Total Cells Counted 100
[2022-01-03 06:10] LABS: Hypochromia 1+; Microcytosis 1+; Polychromasia Slight
[2022-01-03 06:11] LABS: Platelet Estimate Normal
[2022-01-03] MEDS: CARBIDOPA/LEVODOPA 25-100 MG TABLET PEG SCH ×3 (08:31→21:13)
[2022-01-03] MEDS: DOCUSATE SODIUM 100 MG/10 ML UDCUP PEG SCH (08:31)
[2022-01-03] MEDS: DIGOXIN 0.125 MG TABLET PEG SCH (08:32)
[2022-01-03] MEDS: INSULIN GLARGINE 100 UNIT/ML SUBCUT SCH (08:32)
[2022-01-03] MEDS: MECLIZINE 25 MG TABLET PEG SCH (08:32)
[2022-01-03] MEDS: PANTOPRAZOLE 40 MG TABLET PO SCH (08:32)
[2022-01-03] MEDS: lisinopriL 10 MG TABLET PEG SCH (08:32)
[2022-01-03] MEDS: FERROUS SULFATE 325 MG TABLET PO SCH ×2 (08:32→21:13)
[2022-01-03] MEDS: LORATADINE 10 MG TABLET PEG SCH (08:32)
[2022-01-03] MEDS: methylPREDNISolone SOD SUC 40 MG/1 ML VIAL IV SCH ×2 (08:33→21:12)
[2022-01-03] MEDS: DOXYCYCLINE HYCLATE INJ 100 MG in SODIUM CHLORIDE 0.9% 100 ML IV SCH (08:34)
[2022-01-03] MEDS: POLYVINYL ALCOHOL 1.4% OPH SOLN 15 ML BOTTLE BOTH EYES SCH ×2 (09:02→21:13)
[2022-01-03] MEDS: DOCUSATE SODIUM 100 MG CAPSULE PO SCH (09:02)
[2022-01-03] MEDS: LEVOFLOXACIN INJ 500 MG/100 ML PREMIX IV SCH (11:01)
[2022-01-04] MEDS: ALBUTEROL/IPRATROPIUM 3 ML NEB RESP TX SCH ×4 (00:09→19:53)
[2022-01-04] MEDS: INSULIN REGULAR 100 UNIT/ML SUBCUT SCH ×4 (00:24→17:22)
[2022-01-04 04:51] LABS: Basophils % 0.1 % (0.0-0.8); Hematocrit 25.1 VOL% (35.7-47.0); Hemoglobin 7.3 GM/DL (12.0-16.0); Immature Granulocytes % 0.9 %; Immature Granulocytes Absolute 0.06 #; Lymphocytes # 0.4 10*3/uL (1.4-4.0); Lymphocytes % 5.1 % (21.3-54.2); Mean Corpuscular HGB Conc 29.1 GM/DL (32-36); Mean Corpuscular Volume 74.3 FL (87-102); Mean Platelet Volume 10.7 FL (9.6-12.0); Monocytes # 0.2 10*3/uL (0.11-0.8); Monocytes % 2.8 % (1.7-12.7); Neutrophils % 91.1 % (38.7-73.9); Platelet Count 360 T/CUMM (130-400); Red Blood Count 3.38 MC/CUMM (3.8-5.5); Red Cell Distribution Width 18.6 % (9.3-17.3); White Blood Count 6.8 T/CUMM (4-12)
[2022-01-04 05:22] LABS: Hypochromia 1+; Lymphocytes 6 % (20-55); Microcytosis 1+; Platelet Estimate Adequate; Total Cells Counted 100
[2022-01-04] MEDS: DOCUSATE SODIUM 100 MG/10 ML UDCUP PEG SCH (08:35)
[2022-01-04] MEDS: MECLIZINE 25 MG TABLET PEG SCH (08:36)
[2022-01-04] MEDS: CARBIDOPA/LEVODOPA 25-100 MG TABLET PEG SCH ×3 (08:36→21:59)
[2022-01-04] MEDS: lisinopriL 10 MG TABLET PEG SCH (08:37)
[2022-01-04] MEDS: LORATADINE 10 MG TABLET PEG SCH (08:38)
[2022-01-04] MEDS: FERROUS SULFATE 325 MG TABLET PO SCH ×2 (08:38→21:59)
[2022-01-04] MEDS: PANTOPRAZOLE 40 MG TABLET PO SCH (08:38)
[2022-01-04] MEDS: METOPROLOL TARTRATE 25 MG TABLET PEG SCH ×2 (08:38→22:00)
[2022-01-04] MEDS: POLYVINYL ALCOHOL 1.4% OPH SOLN 15 ML BOTTLE BOTH EYES SCH ×2 (08:40→22:00)
[2022-01-04] MEDS: methylPREDNISolone SOD SUC 40 MG/1 ML VIAL IV SCH ×2 (08:41→22:01)
[2022-01-04] MEDS: DIGOXIN 0.125 MG TABLET PEG SCH (08:45)
[2022-01-04] MEDS: INSULIN GLARGINE 100 UNIT/ML SUBCUT SCH (09:00)
[2022-01-04] MEDS: LEVOFLOXACIN INJ 500 MG/100 ML PREMIX IV SCH (12:01)
[2022-01-04] MEDS: CLINDAMYCIN INJ 900 MG/50 ML PREMIX IV SCH ×2 (16:18→22:23)
[2022-01-05] MEDS: ALBUTEROL/IPRATROPIUM 3 ML NEB RESP TX SCH ×4 (00:55→19:52)
[2022-01-05] MEDS: INSULIN REGULAR 100 UNIT/ML SUBCUT SCH ×4 (01:40→17:42)
[2022-01-05 05:19] LABS: Basophils % 0.2 % (0.0-0.8); Hematocrit 26.1 VOL% (35.7-47.0); Hemoglobin 7.6 GM/DL (12.0-16.0); Immature Granulocytes % 1.9 %; Lymphocytes # 0.3 10*3/uL (1.4-4.0); Lymphocytes % 5.3 % (21.3-54.2); Mean Corpuscular HGB Conc 29.1 GM/DL (32-36); Mean Corpuscular Volume 74.4 FL (87-102); Mean Platelet Volume 10.7 FL (9.6-12.0); Monocytes # 0.1 10*3/uL (0.11-0.8); Monocytes % 1.7 % (1.7-12.7); Neutrophils % 90.9 % (38.7-73.9); Platelet Count 351 T/CUMM (130-400); Red Blood Count 3.51 MC/CUMM (3.8-5.5); Red Cell Distribution Width 18.7 % (9.3-17.3); White Blood Count 5.3 T/CUMM (4-12)
[2022-01-05 05:47] LABS: Calcium 9.3 MG/DL (8.5-10.1); Osmolality,Calculated 288.8 MOS/KG (273-304); Potassium 4.6 MMOL/L (3.5-5.1)
[2022-01-05 05:59] LABS: Hypochromia 1+; Lymphocytes 3 % (20-55); Microcytosis 1+; Platelet Estimate Adequate; Total Cells Counted 100
[2022-01-05] MEDS: methylPREDNISolone SOD SUC 40 MG/1 ML VIAL IV SCH ×2 (07:42→19:43)
[2022-01-05] MEDS: CLINDAMYCIN INJ 900 MG/50 ML PREMIX IV SCH ×3 (07:51→22:03)
[2022-01-05] MEDS: INSULIN GLARGINE 100 UNIT/ML SUBCUT SCH (09:38)
[2022-01-05] MEDS: METOPROLOL TARTRATE 25 MG TABLET PEG SCH ×2 (09:39→22:02)
[2022-01-05] MEDS: MECLIZINE 25 MG TABLET PEG SCH (09:39)
[2022-01-05] MEDS: traMADol 50 MG TABLET PEG PRN (09:39)
[2022-01-05] MEDS: DOCUSATE SODIUM 100 MG/10 ML UDCUP PEG SCH (09:40)
[2022-01-05] MEDS: LORATADINE 10 MG TABLET PEG SCH (09:40)
[2022-01-05] MEDS: PANTOPRAZOLE 40 MG TABLET PO SCH (09:40)
[2022-01-05] MEDS: FERROUS SULFATE 325 MG TABLET PO SCH ×2 (09:40→22:02)
[2022-01-05] MEDS: CARBIDOPA/LEVODOPA 25-100 MG TABLET PEG SCH ×3 (09:40→22:02)
[2022-01-05] MEDS: POLYVINYL ALCOHOL 1.4% OPH SOLN 15 ML BOTTLE BOTH EYES SCH ×2 (09:40→22:08)
[2022-01-05] MEDS: lisinopriL 10 MG TABLET PEG SCH (09:40)
[2022-01-05] MEDS: DIGOXIN 0.125 MG TABLET PEG SCH (09:41)
[2022-01-05 11:16] LABS: M. Tuberculosis PCR Result Negative (Negative)
[2022-01-05] MEDS: FLUCONAZOLE 100 MG TABLET PO SCH (11:19)
[2022-01-05] MEDS: LEVOFLOXACIN INJ 500 MG/100 ML PREMIX IV SCH (11:22)
[2022-01-06] MEDS: ALBUTEROL/IPRATROPIUM 3 ML NEB RESP TX SCH ×4 (00:50→19:23)
[2022-01-06] MEDS: INSULIN REGULAR 100 UNIT/ML SUBCUT SCH ×4 (00:57→18:09)
[2022-01-06] MEDS: CLINDAMYCIN INJ 900 MG/50 ML PREMIX IV SCH ×2 (06:06→15:18)
[2022-01-06 06:13] LABS: Calcium 8.8 MG/DL (8.5-10.1); Osmolality,Calculated 282.8 MOS/KG (273-304); Potassium 4.5 MMOL/L (3.5-5.1)
[2022-01-06] MEDS: DOCUSATE SODIUM 100 MG/10 ML UDCUP PEG SCH (10:21)
[2022-01-06] MEDS: DIGOXIN 0.125 MG TABLET PEG SCH (10:21)
[2022-01-06] MEDS: LORATADINE 10 MG TABLET PEG SCH (10:22)
[2022-01-06] MEDS: CARBIDOPA/LEVODOPA 25-100 MG TABLET PEG SCH ×3 (10:22→22:22)
[2022-01-06] MEDS: MECLIZINE 25 MG TABLET PEG SCH (10:22)
[2022-01-06] MEDS: PANTOPRAZOLE 40 MG TABLET PO SCH (10:23)
[2022-01-06] MEDS: FERROUS SULFATE 325 MG TABLET PO SCH ×2 (10:23→22:22)
[2022-01-06] MEDS: traMADol 50 MG TABLET PEG PRN ×2 (10:24→15:17)
[2022-01-06] MEDS: lisinopriL 10 MG TABLET PEG SCH (10:24)
[2022-01-06] MEDS: methylPREDNISolone SOD SUC 40 MG/1 ML VIAL IV SCH ×2 (10:25→22:27)
[2022-01-06] MEDS: POLYVINYL ALCOHOL 1.4% OPH SOLN 15 ML BOTTLE BOTH EYES SCH (10:26)
[2022-01-06] MEDS: LEVOFLOXACIN INJ 500 MG/100 ML PREMIX IV SCH (10:27)
[2022-01-06] MEDS: FLUCONAZOLE 100 MG TABLET PO SCH (10:32)
[2022-01-06] MEDS: METOPROLOL TARTRATE 25 MG TABLET PEG SCH ×2 (10:32→22:22)
[2022-01-06] MEDS: INSULIN GLARGINE 100 UNIT/ML SUBCUT SCH (11:16)
[2022-01-07] MEDS: ALBUTEROL/IPRATROPIUM 3 ML NEB RESP TX SCH ×4 (00:34→19:40)
[2022-01-07] MEDS: CLINDAMYCIN INJ 900 MG/50 ML PREMIX IV SCH ×4 (01:40→23:15)
[2022-01-07] MEDS: POLYVINYL ALCOHOL 1.4% OPH SOLN 15 ML BOTTLE BOTH EYES SCH ×3 (01:44→21:47)
[2022-01-07] MEDS: INSULIN REGULAR 100 UNIT/ML SUBCUT SCH ×4 (03:00→18:30)
[2022-01-07 06:15] LABS: Basophils % 0.4 % (0.0-0.8); Eosinophils % 0.1 % (0.00-10.9); Hematocrit 30.2 VOL% (35.7-47.0); Hemoglobin 8.8 GM/DL (12.0-16.0); Immature Granulocytes % 2.8 %; Immature Granulocytes Absolute 0.21 #; Lymphocytes # 0.6 10*3/uL (1.4-4.0); Lymphocytes % 7.8 % (21.3-54.2); Mean Corpuscular HGB Conc 29.1 GM/DL (32-36); Mean Corpuscular Volume 73.8 FL (87-102); Monocytes # 0.3 10*3/uL (0.11-0.8); Monocytes % 4.4 % (1.7-12.7); NRBC # 0.02 10*3/uL; Neutrophils % 84.5 % (38.7-73.9); Platelet Count 392 T/CUMM (130-400); Red Blood Count 4.09 MC/CUMM (3.8-5.5); Red Cell Distribution Width 19.3 % (9.3-17.3); White Blood Count 7.6 T/CUMM (4-12)
[2022-01-07 06:19] LABS: Hypochromia Slight; Microcytosis Slight; Platelet Estimate Adequate
[2022-01-07] MEDS: MECLIZINE 25 MG TABLET PEG SCH (09:10)
[2022-01-07] MEDS: methylPREDNISolone SOD SUC 40 MG/1 ML VIAL IV SCH ×2 (09:10→21:45)
[2022-01-07] MEDS: LORATADINE 10 MG TABLET PEG SCH (09:10)
[2022-01-07] MEDS: FLUCONAZOLE 100 MG TABLET PO SCH (09:10)
[2022-01-07] MEDS: DOCUSATE SODIUM 100 MG/10 ML UDCUP PEG SCH (09:10)
[2022-01-07] MEDS: lisinopriL 10 MG TABLET PEG SCH (09:11)
[2022-01-07] MEDS: INSULIN GLARGINE 100 UNIT/ML SUBCUT SCH (09:11)
[2022-01-07] MEDS: CARBIDOPA/LEVODOPA 25-100 MG TABLET PEG SCH ×3 (09:11→21:47)
[2022-01-07] MEDS: METOPROLOL TARTRATE 25 MG TABLET PEG SCH ×2 (09:11→21:47)
[2022-01-07] MEDS: FERROUS SULFATE 325 MG TABLET PO SCH ×2 (09:11→21:47)
[2022-01-07] MEDS: PANTOPRAZOLE 40 MG TABLET PO SCH (09:11)
[2022-01-07] MEDS: DIGOXIN 0.125 MG TABLET PEG SCH (09:11)
[2022-01-07] MEDS: LEVOFLOXACIN INJ 500 MG/100 ML PREMIX IV SCH (11:43)
[2022-01-08] MEDS: ALBUTEROL/IPRATROPIUM 3 ML NEB RESP TX SCH ×3 (00:06→13:25)
[2022-01-08] MEDS: INSULIN REGULAR 100 UNIT/ML SUBCUT SCH ×3 (01:32→11:39)
[2022-01-08] MEDS: CLINDAMYCIN INJ 900 MG/50 ML PREMIX IV SCH (06:14)
[2022-01-08] MEDS: CARBIDOPA/LEVODOPA 25-100 MG TABLET PEG SCH (08:35)
[2022-01-08] MEDS: DIGOXIN 0.125 MG TABLET PEG SCH (08:35)
[2022-01-08] MEDS: MECLIZINE 25 MG TABLET PEG SCH (08:36)
[2022-01-08] MEDS: lisinopriL 10 MG TABLET PEG SCH (08:36)
[2022-01-08] MEDS: PANTOPRAZOLE 40 MG TABLET PO SCH (08:36)
[2022-01-08] MEDS: LORATADINE 10 MG TABLET PEG SCH (08:36)
[2022-01-08] MEDS: METOPROLOL TARTRATE 25 MG TABLET PEG SCH (08:36)
[2022-01-08] MEDS: FERROUS SULFATE 325 MG TABLET PO SCH (08:36)
[2022-01-08] MEDS: DOCUSATE SODIUM 100 MG/10 ML UDCUP PEG SCH (08:37)
[2022-01-08] MEDS: INSULIN GLARGINE 100 UNIT/ML SUBCUT SCH (08:38)
[2022-01-08] MEDS: methylPREDNISolone SOD SUC 40 MG/1 ML VIAL IV SCH (08:38)
[2022-01-08] MEDS: POLYVINYL ALCOHOL 1.4% OPH SOLN 15 ML BOTTLE BOTH EYES SCH (08:38)
[2022-01-08] MEDS: LEVOFLOXACIN INJ 500 MG/100 ML PREMIX IV SCH (11:40)
[2022-01-08 16:45] VITALS: BP 145/59
== END 2022-01-08 18:32 | DRG 186 ==
LOC: EDBD → EDUNIT# → N.EDINP 10:14 → N.ED 10:14 → N.3E 15:15
PROVIDERS: ADMIT Internal Medicine; ATTEND Internal Medicine